=== PATIENT | female | born 1935 | race Caucasian/White ===

== ENCOUNTER 2016-06-05 21:24 | Emergency (ER) | payer MEDICARE ==
[2016-06-05] MEDS ORDERED: Heparin 5,000 UNITS/ML VIAL ONE (21:45)
[2016-06-05] MEDS ORDERED: Heparin 20,000 units/D5W 500 ML ONE (21:54)
[2016-06-05 21:56] LABS: #Basophils 0.1 thou/uL (0.0-0.2); #Eosinphils 0.2 thou/uL (0.0-0.7); #Lymphocytes 3.3 thou/uL (1.20-3.40); #Monocytes 1.3 thou/uL (0.11-0.59); %Basophils 1.2 % (0.0-1.0); %Eosinophils 1.5 % (0.0-10.0); %Lymphocytes 29.9 % (21.0-51.0); %Neutrophils 55.3 % (42.0-75.0); Hemoglobin 13.9 g/dL (12.0-16.0); Mean Corpuscular Hemoglobin 30.7 pg (27.0-31.0); Mean Corpuscular Volume 90.4 fl (81.0-99.0); Mean Platelet Volume 5.9 fL (7.4-10.4); Platelet Count 376 thou/uL (130-400); RBC Distribution Width 12.4 % (11.5-14.5); Red Blood Cell (RBC) Count 4.52 mill/uL (4.20-5.40); White Blood Cell (WBC) Count 10.9 thou/uL (4.8-10.8)
[2016-06-05 22:03] LABS: PTT 27.6 SEC (22.9-36.1); Prothrombin Time 12.9 SEC (12.0-14.7)
[2016-06-05 22:10] LABS: ALT (SGPT) 12 U/L (0-55); AST (SGOT) 17 U/L (5-34); Alkaline Phosphatase 49 U/L (40-150); Anion Gap 16 mmol/L (10-20); BUN (Urea Nitrogen) 13 mg/dL (9.8-20.1); Bilirubin, Total 0.2 mg/dL (0.2-1.2); Calc. Creatinine Clearance 0 mL/min (70-130); Calcium 9.8 mg/dL (7.8-10.44); Carbon Dioxide 26 mmol/L (23-31); Chloride 94 mmol/L (98-107); Estimated GFR-MDRD 75; Globulin 3.4 g/dL (2.4-3.5); Glucose 108 mg/dL (83-110); Potassium 4.1 mmol/L (3.5-5.1); Protein, Total 7.4 g/dL (5.8-8.1); Sodium 132 mmol/L (136-145)
[2016-06-05] MEDS ORDERED: Clopidogrel Bisulfate 75 MG TAB ONE (22:10)
[2016-06-05 22:11] LABS: CKMB 0.8 ng/mL (0-6.6); Troponin I 0.014 ng/mL (< 0.028)
== END 2016-06-05 22:15 | disposition short-term general hospital (02) ==
LOC: NAV ERS 21:24
DX: I21.19 ST elevation (STEMI) myocardial infarction involving other coronary artery of inferior wall (principal); F17.210 Nicotine dependence, cigarettes, uncomplicated; F41.9 Anxiety disorder, unspecified; F32.9 Major depressive disorder, single episode, unspecified; Z79.82 Long term (current) use of aspirin; Z79.899 Other long term (current) drug therapy
CPT/HCPCS: 80053; 82553; 84484; 85025; 85610; 85730; 93005; 96374; 96375; J1644

== ENCOUNTER 2016-09-12 12:35 | Outpatient (CLI) | payer MEDICARE ==
[2016-09-12 21:54] LABS: Bilirubin Negative (Negative); Blood, Urine Large (Negative); Glucose, Urine (Dipstick) Negative (Negative); Leukocyte Large (Negative); Nitrite Negative (Negative); Protein, Urine (Dipstick) Negative (Neg-Trace); Urobilinogen 0.2 mg/dL (0.2-1.0)
[2016-09-12 22:15] LABS: Clarity SL HAZY (Clear)
[2016-09-12 22:21] LABS: Bacteria/HPF 1+ HPF (None Seen); Squamous Epithelial 0-3 HPF (0-3)
== END 2016-09-12 12:36 | disposition home or self-care (01) ==
LOC: NAV LABSP 12:35
PROVIDERS: ATTEND Internal Medicine
DX: N39.0 Urinary tract infection, site not specified (principal)
CPT/HCPCS: 81001; 87086

== ENCOUNTER 2016-11-21 10:35 | Outpatient (CLI) | payer MEDICARE ==
[2016-11-21 11:07] LABS: Prothrombin Time 40.6 SEC (12.0-14.7)
== END 2016-11-21 10:36 | disposition home or self-care (01) ==
LOC: NAVSJIPCSP 10:35 → NAV LAB 10:36
PROVIDERS: ATTEND Internal Medicine
DX: G45.9 Transient cerebral ischemic attack, unspecified (principal)
CPT/HCPCS: 36415; 85610

== ENCOUNTER 2016-11-24 10:21 | Outpatient (CLI) | payer MEDICARE ==
[2016-11-24 11:40] LABS: INR-International Normal Ratio 2.9; Prothrombin Time 31.9 SEC (12.0-14.7)
== END 2016-11-24 10:22 | disposition home or self-care (01) ==
LOC: NAVSJIPCSP 10:21 → NAV LAB 10:22
PROVIDERS: ATTEND Internal Medicine
DX: Z51.81 Encounter for therapeutic drug level monitoring (principal); G45.9 Transient cerebral ischemic attack, unspecified; Z79.01 Long term (current) use of anticoagulants
CPT/HCPCS: 85610

== ENCOUNTER 2016-11-29 09:42 | Outpatient (CLI) | payer MEDICARE ==
[2016-11-29 13:45] LABS: Bilirubin Negative (Negative); Blood, Urine Trace (Negative); Clarity Slightly Cloudy (Clear); Glucose, Urine (Dipstick) 100 mg/dL (Negative); Leukocyte Small (Negative); Nitrite Positive (Negative); Protein, Urine (Dipstick) Negative (Neg-Trace); Specific Gravity, Urine 1.015 (1.005-1.030)
[2016-11-29 13:58] LABS: Bacteria/HPF 2+ HPF (None Seen); Squamous Epithelial 0-3 HPF (0-3)
== END 2016-11-29 09:43 | disposition home or self-care (01) ==
LOC: NAVSJIPCSP 09:42
PROVIDERS: ATTEND Internal Medicine
DX: N39.0 Urinary tract infection, site not specified (principal)
CPT/HCPCS: 81003; 81015; 87077; 87086; 87186

== ENCOUNTER 2016-12-03 12:32 | Outpatient (CLI) | payer MEDICARE ==
[2016-12-03 14:07] LABS: INR-International Normal Ratio 2.3; Prothrombin Time 25.8 SEC (12.0-14.7)
== END 2016-12-03 12:33 | disposition home or self-care (01) ==
LOC: NAV LAB 12:32
PROVIDERS: ATTEND Internal Medicine
DX: Z51.81 Encounter for therapeutic drug level monitoring (principal); G45.9 Transient cerebral ischemic attack, unspecified; Z79.01 Long term (current) use of anticoagulants
CPT/HCPCS: 36415; 85610

== ENCOUNTER 2016-12-18 11:17 | Outpatient (CLI) | payer MEDICARE ==
[2016-12-18 13:14] LABS: ALT (SGPT) 23 U/L (8-55); AST (SGOT) 22 U/L (5-34); Albumin 4.2 g/dL (3.4-4.8); Alkaline Phosphatase 70 U/L (40-150); Anion Gap 16 mmol/L (10-20); BUN (Urea Nitrogen) 8 mg/dL (9.8-20.1); Bilirubin, Total 0.5 mg/dL (0.2-1.2); Calc. Creatinine Clearance 0 mL/min (70-130); Calcium 9.4 mg/dL (7.8-10.44); Carbon Dioxide 27 mmol/L (23-31); Chloride 95 mmol/L (98-107); Estimated GFR-MDRD 82; Globulin 2.5 g/dL (2.4-3.5); Glucose 90 mg/dL (83-110); Potassium 4.6 mmol/L (3.5-5.1); Protein, Total 6.7 g/dL (6.0-8.3); Sodium 133 mmol/L (136-145)
[2016-12-18 13:35] LABS: INR-International Normal Ratio 1.7; Prothrombin Time 20.5 SEC (12.0-14.7)
[2016-12-18 13:36] LABS: #Basophils 0.1 thou/uL (0.0-0.2); #Eosinphils 0.1 thou/uL (0.0-0.7); #Monocytes 1.1 thou/uL (0.11-0.59); #Neutrophils 5.3 thou/uL (1.40-6.50); %Basophils 1.1 % (0.0-1.0); %Eosinophils 1.5 % (0.0-10.0); %Lymphocytes 23.3 % (21.0-51.0); %Monocytes 12.3 % (0.0-10.0); %Neutrophils 61.8 % (42.0-75.0); Hemoglobin 11.8 g/dL (12.0-16.0); Mean Corpuscular HGB CONC 32.5 g/dL (32.0-36.0); Mean Corpuscular Hemoglobin 29.9 pg (27.0-31.0); Mean Platelet Volume 5.2 fL (7.4-10.4); Platelet Count 379 thou/uL (130-400); RBC Distribution Width 12.3 % (11.5-14.5); Red Blood Cell (RBC) Count 3.95 mill/uL (4.20-5.40); White Blood Cell (WBC) Count 8.6 thou/uL (4.8-10.8)
== END 2016-12-18 11:18 | disposition home or self-care (01) ==
LOC: NAVSJIPCSP 11:17
PROVIDERS: ATTEND Internal Medicine
DX: D64.9 Anemia, unspecified (principal); I48.0 Paroxysmal atrial fibrillation; G45.9 Transient cerebral ischemic attack, unspecified; Z98.62 Peripheral vascular angioplasty status
CPT/HCPCS: 36415; 80053; 85025; 85610

== ENCOUNTER 2016-12-20 12:16 | Outpatient (CLI) | payer MEDICARE ==
[~2016-12-20 12:16] MED LIST: Iopamidol 370 76% 100 ML VIAL ONE
--- NOTE | 2016-12-20 14:55 | CT ---
CT ANGIO OF THE ABDOMEN AND PELVIS AND LOWER EXTERMIITES PERFORMED WITH INTRAVENOUS CONTRAST ENHANCE MENT WITH 3D RECONSTRUCTIONS: HISTORY: Right leg pain. COMPARISON: 10/07/2014 FINDINGS: The lung bases show chronic appearing change. The upper portion of the liver is not included on thi s exam. The liver and spleen, as well as the pancreas regions appear unremarkable. The gallbladder is also normal in size and appearance. The right and left adrenal glands and the right and left ki dneys are normal. No significant periaortic or mesenteric adenopathy. There is a marked scoliotic deformity to the spine, convexed to the left. The angiographic portion of the study yielded a technically good examination. There is pronounced a therosclerotic change of the infrarenal abdominal aorta, particularly at the bifurcation. No aneury sm. There is a single left renal artery and two right renal arteries present. There is some mild n arrowing at the origin of both the celiac as well as the superior mesenteric arteries. On the right side, there is atherosclerotic change without significant narrowing of the right common iliac artery. There is dense atherosclerotic change of the proximal internal iliac artery and some areas of mild narrowing through the external iliac artery without significant stenosis. There is a fem/fem bypass noted. The common femoral, superficial femoral, and profunda femoral arteries are a ll patent with atherosclerotic change of the distal superficial femoral artery and some mild narrowi ng at the level of the adductor canal. The popliteal artery is patent without significant stenosis. There is a patent trifurcation and three-vessel runoff present. 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 Flow is seen wi thin the small external iliac with fairly significant stenosis along the course of the left external iliac artery. The fem/fem bypass is patent, and the common femoral artery, as well as the superfic ial and profunda femoral arteries, show no areas of significant narrowing. There is some moderate p laque formation of the superficial femoral artery, distally. The popliteal artery is also patent, a nd three-vessel runoff to the foot is noted. IMPRESSION: 1. The right lower extremity shows three-vessel runoff to the foot without evidence of any areas of significant stenosis. 2. The left lower extremity runoff shows occlusion of the left common iliac artery at its origin an d a markedly narrowed left external iliac artery. There is a fem/fem bypass. The bypass is patent, and the left leg shows three-vessel runoff to the foot. POS: [facility]
== END 2016-12-20 12:17 | disposition home or self-care (01) ==
LOC: NAV CT 12:16
PROVIDERS: ATTEND Internal Medicine
DX: M79.606 Pain in leg, unspecified (principal); I77.1 Stricture of artery; Z98.62 Peripheral vascular angioplasty status
CPT/HCPCS: 75635

== ENCOUNTER 2017-03-11 09:58 | Outpatient (CLI) | payer MEDICARE ==
--- NOTE | 2017-03-11 16:00 | ULT ---
EXAM: BLADDER ULTRASOUND: HISTORY: Bladder spasm. COMPARISON: None. TECHNIQUE: Transverse and sagittal imaging of the urinary bladder was performed, pre- and post-voiding. FINDINGS: Suboptimal evaluation of the bladder mucosal due to inadequate distention on the prevoid images. Prevoid volume is 8 mL. Postvoid volume is 3 mm. IMPRESSION: Limited evaluation of the bladder. POS: [facility]
== END 2017-03-11 09:59 | disposition home or self-care (01) ==
LOC: NAV ULT 09:58
PROVIDERS: ATTEND Internal Medicine
DX: R39.89 Other symptoms and signs involving the genitourinary system (principal); Z51.81 Encounter for therapeutic drug level monitoring; G45.9 Transient cerebral ischemic attack, unspecified; Z79.01 Long term (current) use of anticoagulants
CPT/HCPCS: 76856

== ENCOUNTER 2017-04-11 15:49 | Outpatient (CLI) | payer MEDICARE ==
--- NOTE | 2017-04-11 16:44 | RAD ---
RIBS LEFT GREATER THAN EQUAL TWO VIEW WITH PA CHEST X-RAY 04/11/17 HISTORY: Left sided rib pain after coughing. COMPARISON: None. FINDINGS: The lungs are clear. No pneumothorax or effusion. Numerous calcified granulomas. There is cement in t he thoracolumbar junction compression fractures. IMPRESSION: Mild dextroscoliosis. There is a midline thoracic compression fracture. IMPRESSION: 1. No displaced left sided rib fracture. No pneumothorax. 2. Multiple thoracic spine compression fractures as well as thoracolumbar junction compression f ractures which contains cement. Compression fracture of T7 does not contain cement. 3. Multiple calcified granulomas. POS: [facility]
== END 2017-04-11 15:50 | disposition home or self-care (01) ==
LOC: NAV RAD 15:49
PROVIDERS: ATTEND Internal Medicine
DX: R07.81 Pleurodynia (principal); M86.8X8 Other osteomyelitis, other site; S22.069A Unspecified fracture of T7-T8 vertebra, initial encounter for closed fracture

== ENCOUNTER 2017-05-13 00:46 | Emergency (ER) | payer MEDICARE ==
[2017-05-13] MEDS ORDERED: Ondansetron HCl/PF 4 MG/2 ML Vial ONE (01:12)
[2017-05-13 01:17] LABS: #Basophils 0.1 thou/uL (0.0-0.2); #Eosinphils 0.1 thou/uL (0.0-0.7); #Lymphocytes 1.8 thou/uL (1.20-3.40); #Neutrophils 13.1 thou/uL (1.40-6.50); %Basophils 0.5 % (0.0-1.0); %Eosinophils 0.8 % (0.0-10.0); %Lymphocytes 11.2 % (21.0-51.0); %Monocytes 6.2 % (0.0-10.0); %Neutrophils 81.3 % (42.0-75.0); Hemoglobin 12.1 g/dL (12.0-16.0); Mean Corpuscular HGB CONC 33.3 g/dL (32.0-36.0); Mean Corpuscular Hemoglobin 29.7 pg (27.0-31.0); Mean Corpuscular Volume 89.1 fl (81.0-99.0); Mean Platelet Volume 7.3 fL (7.4-10.4); Platelet Count 299 thou/uL (130-400); Red Blood Cell (RBC) Count 4.08 mill/uL (4.20-5.40); White Blood Cell (WBC) Count 16.1 thou/uL (4.8-10.8)
[2017-05-13] MEDS ORDERED: Sodium Chloride 0.9% 1,000 ML ONE (01:20)
[2017-05-13 01:26] LABS: INR-International Normal Ratio 0.9; PTT 25.6 SEC (22.9-36.1); Prothrombin Time 12.7 SEC (12.0-14.7)
[2017-05-13 01:34] LABS: ALT (SGPT) 36 U/L (8-55); AST (SGOT) 28 U/L (5-34); Albumin 3.9 g/dL (3.4-4.8); Alkaline Phosphatase 64 U/L (40-150); Anion Gap 14 mmol/L (10-20); BUN (Urea Nitrogen) 11 mg/dL (9.8-20.1); Bilirubin, Total 0.3 mg/dL (0.2-1.2); Calc. Creatinine Clearance 0 mL/min (70-130); Calcium 9.3 mg/dL (7.8-10.44); Carbon Dioxide 29 mmol/L (23-31); Chloride 97 mmol/L (98-107); Estimated GFR-MDRD 77; Glucose 106 mg/dL (83-110); Protein, Total 6.9 g/dL (6.0-8.3); Sodium 136 mmol/L (136-145)
[2017-05-13 03:46] LABS: Bilirubin Negative (Negative); Blood, Urine Negative (Negative); Clarity Clear (Clear); Glucose, Urine (Dipstick) Negative (Negative); Leukocyte Negative (Negative); Nitrite Negative (Negative); Protein, Urine (Dipstick) Negative (Neg-Trace); pH, Urine 6.5 (5.0-9.0)
--- NOTE | 2017-05-13 08:27 | RAD ---
PORTABLE CHEST 1 VIEW: Date: 05/13/17 Time: 0158 hours HISTORY: Trauma. Fall. Chest pain. FINDINGS/IMPRESSION: The heart size is normal. The lungs are expanded with evidence of old granulomatous disease. No lobar consolidation, pneumothoraces, or pleural effusions are identified. POS: [facility]
--- NOTE | 2017-05-13 08:54 | RAD ---
RIGHT HIP 2 VIEWS: HISTORY: An 82-year-old female with right hip pain following a mechanical fall. FINDINGS/ IMPRESSION: Right hip joint arthrosis. Bone demineralization. No evidence for acute right hip fracture. POS: [facility]
--- NOTE | 2017-05-13 08:58 | RAD ---
TWO VIEWS OF THE LEFT HIP: INDICATION: History of mechanical fall with left hip pain. FINDINGS: There is a nondisplaced left inferior pubic ramus fracture. No acute fracture is seen involving the proximal femur. There is mild degenerative arthrosis of the left hip. There are surgical clips seen within the left inguinal region corresponding to a fem-fem bypass graft. IMPRESSION: 1. No acute fracture or subluxation involving the left proximal femur and left hip. 2. There is a nondisplaced fracture involving the left inferior pubic ramus. Overlying bowel gas li mits visualization of the left pubic body and the superior pubic ramus. POS: [facility]
--- NOTE | 2017-05-13 08:58 | RAD ---
AP PELVIS: Please see CT pelvis report. POS: [facility]
--- NOTE | 2017-05-13 09:22 | CT ---
PRELIMINARY REPORT/[facility]/EMERGENCY AFTER HOURS PROCEDURE: EXAM: CT Thoracic Spine Without Intravenous Contrast CLINICAL HISTORY: 82 years old, female; Pain; Pain in thoracic spine; Patient HX: Fell @ 2100 last night TECHNIQUE: Axial computed tomography images of the thoracic spine without intravenous contrast. All CT scans at this facility use one or more dose reduction techniques, viz.: automated exposure control; ma/kV adjustment per patient size (including targeted exams where dose is matched to indication; i.e. head) ; or iterative reconstruction technique. Coronal and sagittal reformatted images were created and reviewed. COMPARISON: No relevant prior studies available. FINDINGS: Please note, the thoracic spine is visualized from the T3 level through the L1 level. Vertebrae: There is a T7 compression fracture with increased sclerosis, suggesting chronicity. Vertebroplasty changes are seen at T12 and L1. Discs/spinal canal/neural foramina: No acute findings. Soft tissues: Unremarkable. Vasculature: Atherosclerotic vascular calcification. Lymph nodes: Mediastinal and hilar calcified lymph nodes. Lungs: Centrilobular emphysematous changes. IMPRESSION: Chronic appearing T7 compression fracture. Thank you for allowing us to participate in the care of your patient. Dictated and Authenticated by: Jaelyn Galvan MD 05/13/2017 3:25 AM Central Time ([place] & [place]) FINAL REPORT CT THORACIC SPINE WITHOUT CONTRAST: HISTORY: The patient fell last night. Posttraumatic pain. COMPARISON: None. CORRELATION: Thoracic spine MRI 04/16/17. TECHNIQUE: Noncontrast thoracic spine CT is performed in the axial plane. Reformatted images are submitted for interpretation. FINDINGS: This report is in agreement with the preliminary report by [facility]. Chronic fracture involving the T7 ve rtebral body. There is previous vertebroplasty change in the upper lumbar spine. There is diffuse b one demineralization. Acute fractures of the thoracic spine are not appreciated. No high-grade cent ral canal stenosis. Calcified lymph nodes in the mediastinum and janie are identified. POS: [facility]
--- NOTE | 2017-05-13 09:24 | CT ---
PRELIMINARY REPORT/[facility]/EMERGENCY AFTER HOURS PROCEDURE: EXAM: CT Lumbar Spine Without Intravenous Contrast CLINICAL HISTORY: 82 years old, female; Pain; Low back pain; Patient HX: Fell @ 2100 last night TECHNIQUE: Axial computed tomography images of the lumbar spine without intravenous contrast. Coronal and sagittal reformatted images were created and reviewed. COMPARISON: No relevant prior studies available. FINDINGS: Vertebrae: Vertebroplasty changes are seen at T12 and L1. Spinal curvature is noted. There is leftwar d listhesis of L4 upon L5. Multilevel endplate osteophytosis and mild disc space loss are present. No acute fracture. Discs/spinal canal/neural foramina: See above. Soft tissues: Unremarkable. Vasculature: Atherosclerotic vascular calcification. Lungs: Calcified right lower lobe granuloma. Liver: The liver is high density. Stomach and bowel: Stool throughout the colon. IMPRESSION: 1. No acute lumbar spine fracture or dislocation. 2. Multilevel degenerative disc disease. Thank you for allowing us to participate in the care of your patient. Dictated and Authenticated by: Jaelyn Galvan MD 05/13/2017 3:24 AM Central Time ([place] & [place]) FINAL REPORT CT LUMBAR SPINE WITHOUT CONTRAST: HISTORY: Fall. Pain. COMPARISON: 01/01/17. TECHNIQUE: CT lumbar spine is performed in the axial plane. Reformatted images are submitted for interpretation . FINDINGS: This report is in agreement with the preliminary report by [facility]. No acute lumbar spine fracture. The re is prevertebroplasty change at the T12 and L1 level. There is stable degenerative change. Hyperd ensity of the liver is noted. There is an incompletely evaluated anterior right pelvic fracture. The fracture appears to be adjace nt to the anterior margin of the right acetabulum. Please refer to pelvic CT report for further deta ils. POS: [facility]
--- NOTE | 2017-05-13 09:34 | CT ---
PRELIMINARY REPORT/[facility]/EMERGENCY AFTER HOURS PROCEDURE: EXAM: CT Pelvis Without Intravenous Contrast CLINICAL HISTORY: 82 years old, female; Pain; Hip pain; Bilateral; Patient HX: Fell @2100 last night TECHNIQUE: Axial computed tomography images of the pelvis without intravenous contrast. All CT scans at this [facility] use one or more dose reduction techniques, viz.: automated exposure control; ma/kV adjustment p er patient size (including targeted exams where dose is matched to indication; i.e. head); or iterati ve reconstruction technique. COMPARISON: No relevant prior studies available. FINDINGS: Bones/joints: There is a nondisplaced left inferior pubic ramus fracture. There is a nondisplaced fra cture of the left parasymphyseal superior pubic ramus. Degenerative changes in the visualized spine. No dislocation. Soft tissues: Unremarkable. Vasculature: Atherosclerotic vascular opacification. Femoral-femoral bypass changes are noted. Bladder: Unremarkable. No stones. IMPRESSION: Nondisplaced fractures of the left inferior pubic ramus and parasymphyseal left superior pubic ramus. Thank you for allowing us to participate in the care of your patient. Dictated and Authenticated by: Jaelyn Galvan MD 05/13/2017 3:17 AM Central Time ([place] & [place]) FINAL REPORT CT PELVIS WITHOUT IV CONTRAST: Date: 05/13/17 FINDINGS/IMPRESSION: I disagree with the preliminary report given by Dr. Deepika Galvan of [facility]. There are nondisplaced frac tures of the anterior aspect of the right sacrum extending into the neural foramen and a nondisplaced fracture of the right pubic groove extending into anterior column of the right acetabulum. These fin dings were not mentioned on the preliminary report by Dr. Deepika Glavan. She did, however, mention the nondisplaced fractures of the left inferior pubic ramus and parasymphyseal left superior pubic ramus . There is sigmoid diverticulosis. Report called over the telephone to the ER physician Dr. Kerr at [facility] at 0 [phone] hours. CODE QD POS: [facility]
== END 2017-05-13 04:30 | disposition short-term general hospital (02) ==
LOC: NAV ERS 00:46
DX: S32.512A Fracture of superior rim of left pubis, initial encounter for closed fracture (principal); I25.2 Old myocardial infarction; F41.9 Anxiety disorder, unspecified; Z87.891 Personal history of nicotine dependence; Z79.899 Other long term (current) drug therapy; Z79.82 Long term (current) use of aspirin; W17.89XA Other fall from one level to another, initial encounter; Y93.02 Activity, running
CPT/HCPCS: 36415; 71045; 72128; 72131; 72170; 72192; 80053; 81003; 85025; 85610; 85730; 94760; J2270; J2405; J7050

== ENCOUNTER 2017-05-13 11:55 | Inpatient (IN) | payer MEDICARE ==
[2017-05-13] MEDS: traMADol HCl 50 MG TAB PO PRN ×2 (15:18→20:49)
[2017-05-13] MEDS: Docusate 100 MG CAP PO SCH (20:49)
[2017-05-13] MEDS: Zolpidem Tartrate 5 MG TAB PO PRN (20:49)
[2017-05-14] MEDS: traMADol HCl 50 MG TAB PO PRN ×5 (00:43→17:02)
[2017-05-14 05:12] LABS: #Basophils 0.1 thou/uL (0.0-0.2); #Eosinphils 0.3 thou/uL (0.0-0.7); #Lymphocytes 1.2 thou/uL (1.20-3.40); #Monocytes 1.2 thou/uL (0.11-0.59); #Neutrophils 9.2 thou/uL (1.40-6.50); %Basophils 0.6 % (0.0-1.0); %Eosinophils 2.3 % (0.0-10.0); %Lymphocytes 10.4 % (21.0-51.0); %Monocytes 9.8 % (0.0-10.0); %Neutrophils 76.9 % (42.0-75.0); Hemoglobin 9.6 g/dL (12.0-16.0); Mean Corpuscular HGB CONC 32.3 g/dL (32.0-36.0); Mean Corpuscular Hemoglobin 29.5 pg (27.0-31.0); Mean Corpuscular Volume 91.3 fl (81.0-99.0); Mean Platelet Volume 7.1 fL (7.4-10.4); Platelet Count 216 thou/uL (130-400); RBC Distribution Width 13.3 % (11.5-14.5); Red Blood Cell (RBC) Count 3.25 mill/uL (4.20-5.40)
[2017-05-14 05:29] LABS: Anion Gap 10 mmol/L (10-20); BUN (Urea Nitrogen) 13 mg/dL (9.8-20.1); Calc. Creatinine Clearance 54 mL/min (70-130); Calcium 8.3 mg/dL (7.8-10.44); Carbon Dioxide 27 mmol/L (23-31); Chloride 102 mmol/L (98-107); Estimated GFR-MDRD Greater than 90; Glucose 96 mg/dL (83-110); Sodium 135 mmol/L (136-145)
[2017-05-14] MEDS ORDERED: Sodium Chloride 0.9% 1,000 ML IV SCH (07:00)
--- NOTE | 2017-05-14 07:56 | HP ---
CHIEF COMPLAINT: Pelvic fracture. 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 She has most recently been started on amiodarone and at this time appears to have not had any problems with shortness of breath or chest p ain. She admitted; however, this time after a fall when tripped over her walker and sat hard on the floor with initial moderate pain, but then increased when she moved in the bed. She therefore called the ambulance, was brought into [facility] where they initially felt she only had a pubic ramus frac ture on the CT scan and she was therefore admitted to [place] for pain relief and physical therapy. H constanza, after admission, it was found that she on re-read also had an extension of the fracture into her acetabulum, but with no widening of the symphysis. She has no complaints of dizziness, chest mehreen n, headache, palpitations. She does complain of some dry mouth and had a minimal amount of urine out put over the night. She does state that she has had periodic episodes of low blood pressure in the 9 0s, but does not take any antihypertensives. MEDICATIONS: Her medications at this time at home included the amiodarone 400 mg daily, aspirin 81 d aily, citalopram 10 daily, alprazolam 0.25 twice daily. PAST MEDICAL HISTORY: Otherwise, unremarkable. SOCIAL HISTORY: She is a , lives alone, does not smoke any further, but still drinks 2-3 drinks of alcohol daily. 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 She has no change in her vision or hearing, no hoarseness, sore throat. Does have some dry mouth over t he last day, PULMONARY: She denies cough, sputum production, pneumonia, asthma, tuberculosis. CARDIOVASCULAR: She denies chest pain, palpitations, dizziness, lightheadedness. GASTROINTESTINAL: She denies nausea, vomiting, diarrhea, constipation. GENITOURINARY: Denies dysuria, hematuria, nocturia. MUSCULOSKELETAL: She has chronic pain in her back from degenerative disk disease. She is taking no medications at this time. NEUROLOGIC: She denies localized numbness, weakness in arms or extremities. PHYSICAL EXAMINATION: GENERAL: The patient is an elderly white female lying in bed, awake and alert, appears to be in no a cute distress at rest. VITAL SIGNS: Blood pressure on admission was 96/52, temperature is 99, pulse 73, respirations 20, O2 sats 96%. However, she had received morphine in the Emergency Room, at this time now her blood pres sure is up to 113/55, temperature is 98, pulse 72, respirations 18, O2 sats 96%. HEENT: Pupils are equal, round, and react to light and accommodation. Sclerae are anicteric, Conjun ctivae pale. Oral mucous membranes well hydrated. NECK: Supple, no nodes or masses. JVP is not elevated. LUNGS: Clear. CARDIAC: Regular rhythm. No gallops or murmurs. ABDOMEN: Soft, nontender with no masses or organomegaly. SKIN/EXTREMITIES: Show tenderness in the left inguinal area and on movement of the left hip with no obvious hematoma or ecchymosis. Pedal pulses are 1+ and equal. NEUROLOGICAL: Intact. LABORATORY: Initial white count 12,000. Initial white count was 16,000, now it is 12,000. Initial hemoglobin was 12.1, now is 9.6, platelet count was 299, now 216. Sodium is 135, potassium 3.5, chlo ride 4.0, chloride 102, potassium 4.0, bicarbonate 27, creatinine 0.61, BUN 13. Urinalysis only show ed 7-10 white cells, 4-6 red cells, no bacteria. CT as above, does show a left pubic inferior and superior ramus fracture, but also extension into the acetabulum and also a right sacral anterior aspect fracture, nondisplaced. ASSESSMENT: 1. Pelvic fractures, multiple initially felt to be stable. Final reread showing possible extension into the acetabulum and now has developed significant decrease in hemoglobin, possibly due to pelvic hematoma. She has been placed in a pelvic binder and is fairly comfortable at this time. Her blood pressure initially was low after being given morphine in the [facility] ER, but now it is back to [facility] and she has tolerable pain on no medications other than tramadol at this time. 2. Atrial fibrillation appears to be converted to sinus rhythm on amiodarone and will continue this. She has been on full dose aspirin, but this will be discontinued. 3. Her osteoporosis appears to be stable with no other fractures. 4. Degenerative disk disease is stable also. PLAN: Discontinue aspirin, repeat H&H in 4 hours. Give 1 liter of saline, type and screen 2 units o f packed cells. Discussed with the Trauma Team after repeat laboratory. Hold morphine at this time because of possibility of recurrent hypotension. Prognosis is somewhat guarded because of decreased hemoglobin and blood pressure and I have discussed code status with the patient and she is not to be resuscitated.
[2017-05-14] MEDS: Famotidine 20 MG TAB PO SCH (07:57)
[2017-05-14] MEDS: Amiodarone 200 MG TAB PO SCH (07:58)
[2017-05-14] MEDS: Docusate 100 MG CAP PO SCH ×2 (07:58→20:37)
[2017-05-14] MEDS: Citalopram 10 MG TAB PO SCH (07:58)
[2017-05-14 09:47] LABS: Hemoglobin 9.3 g/dL (12.0-16.0); Platelet Count 210 thou/uL (130-400)
[2017-05-14] MEDS: Aspirin 325 MG TAB PO SCH (10:49)
[2017-05-14] MEDS ORDERED: Sodium Chloride 0.9% 10 ML ONE (11:55)
[2017-05-14 14:27] VITALS: BMI 18.8
[2017-05-14] MEDS: ALPRAZolam 0.25 MG TAB PO PRN (16:20)
[2017-05-14] MEDS: Baclofen 10 MG TAB PO PRN (16:20)
[2017-05-14] MEDS: Latanoprost 0.005% Ophth Soln 2.5 ml Bottle EA EYE SCH (20:36)
[2017-05-14] MEDS: Zolpidem Tartrate 5 MG TAB PO PRN (20:37)
[2017-05-15] MEDS: traMADol HCl 50 MG TAB PO PRN ×4 (02:25→19:32)
--- NOTE | 2017-05-15 07:50 | PRG ---
DATE OF SERVICE: 05/15/2017 SUBJECTIVE: The patient feels nauseated this morning. Did not sleep well through the night, is havi ng tolerable, but persistent pain, no dizziness or lightheadedness, did eat fairly well. OBJECTIVE: Shows blood pressure is down again this morning to 97/54, after being given morphine, tem perature is 97.6, pulse 62, respirations 18, O2 sat is 95% on 2 liter cannula. Lungs show a few expi ratory wheezes. Cardiac examination shows irregular rhythm. Abdomen is soft and nontender. LABORATORY DATA: Laboratory shows hemoglobin is fairly stable yesterday at 9.3 down from 9.6 previou s day. Skin and extremities show no significant ecchymoses or bruising of the left iliac or pubic re gion. ASSESSMENT: 1. Resolving pubic and acetabular fracture on the left side, persistent pain, but with stabilized bl eeding. 2. Atrial fibrillation, rate controlled. No anticoagulation secondary to recent pelvic fracture. 3. Recurrent nausea, most likely due to medication. 4. Possible fluid overload with some wheezing this morning after fluid bolus yesterday. PLAN: Chest x-ray today, repeat CBC today, continue morphine and Zofran as needed. Obtain urinalysi s and urine culture today, as the patient states she is having some dysuria.
[2017-05-15] MEDS: Aspirin 325 MG TAB PO SCH (08:45)
[2017-05-15] MEDS: Famotidine 20 MG TAB PO SCH (08:45)
[2017-05-15] MEDS: Citalopram 10 MG TAB PO SCH (08:45)
[2017-05-15] MEDS: Docusate 100 MG CAP PO SCH ×2 (08:45→19:32)
[2017-05-15] MEDS: Amiodarone 200 MG TAB PO SCH (08:45)
[2017-05-15] MEDS: Baclofen 10 MG TAB PO PRN (08:46)
[2017-05-15] MEDS: ALPRAZolam 0.25 MG TAB PO PRN ×2 (08:54→20:38)
[2017-05-15 10:37] LABS: Bilirubin Negative (Negative); Blood, Urine Large (Negative); Clarity Cloudy (Clear); Glucose, Urine (Dipstick) Negative (Negative); Leukocyte Small (Negative); Nitrite Positive (Negative); Protein, Urine (Dipstick) 100 mg/dL (Neg-Trace); Urobilinogen 0.2 mg/dL (0.2-1.0); pH, Urine 5.5 (5.0-9.0)
[2017-05-15 11:04] LABS: Bacteria/HPF 4+ HPF (None Seen); Squamous Epithelial 0-3 HPF (0-3)
[2017-05-15 11:05] LABS: Other Microscopic Description NO
[2017-05-15 12:29] LABS: #Basophils 0.1 thou/uL (0.0-0.2); #Eosinphils 0.2 thou/uL (0.0-0.7); #Lymphocytes 0.8 thou/uL (1.20-3.40); #Monocytes 1.2 thou/uL (0.11-0.59); %Basophils 0.4 % (0.0-1.0); %Eosinophils 1.1 % (0.0-10.0); %Lymphocytes 6.2 % (21.0-51.0); %Monocytes 9.2 % (0.0-10.0); Hemoglobin 9.5 g/dL (12.0-16.0); Mean Corpuscular HGB CONC 32.5 g/dL (32.0-36.0); Mean Corpuscular Hemoglobin 29.3 pg (27.0-31.0); Mean Corpuscular Volume 90.1 fl (81.0-99.0); Mean Platelet Volume 6.9 fL (7.4-10.4); Platelet Count 221 thou/uL (130-400); RBC Distribution Width 13.1 % (11.5-14.5); Red Blood Cell (RBC) Count 3.25 mill/uL (4.20-5.40); White Blood Cell (WBC) Count 13.2 thou/uL (4.8-10.8)
--- NOTE | 2017-05-15 17:16 | RAD ---
FRONTAL VIEW CHEST 05/15/17 CLINICAL HISTORY: Wheezing, shortness of breath. FINDINGS: Reference made to 05/13/17. Redemonstration of granulomatous calcification. There is patchy density of the left lung base. The le ft hemidiaphragm is incompletely imaged. No consolidation of the right lung is seen. The cardiac is a ccentuated by portable technique. Osseous structures reveal no acute findings. IMPRESSION: Patchy density at the left lung base. There is incomplete visualization left hemidiaphragm. This coul d be on the basis of pneumonia. Recommend followup with dedicated two view chest to more completely e valuate. POS: [facility]
[2017-05-15] MEDS: Sulfameth/Trimethoprim DS 800-160mg TAB PO SCH (19:33)
[2017-05-15] MEDS: Latanoprost 0.005% Ophth Soln 2.5 ml Bottle EA EYE SCH (19:35)
[2017-05-16] MEDS: traMADol HCl 50 MG TAB PO PRN ×3 (03:55→14:41)
[2017-05-16] MEDS: ALPRAZolam 0.25 MG TAB PO PRN (07:51)
[2017-05-16] MEDS: Baclofen 10 MG TAB PO PRN (07:51)
[2017-05-16] MEDS: Ondansetron ODT 4 MG TAB PO PRN (07:51)
[2017-05-16 07:57] LABS: #Basophils 0.1 thou/uL (0.0-0.2); #Eosinphils 0.3 thou/uL (0.0-0.7); #Lymphocytes 1.1 thou/uL (1.20-3.40); #Monocytes 1.3 thou/uL (0.11-0.59); #Neutrophils 9.3 thou/uL (1.40-6.50); %Basophils 0.5 % (0.0-1.0); %Eosinophils 2.2 % (0.0-10.0); %Lymphocytes 9.3 % (21.0-51.0); %Monocytes 11.1 % (0.0-10.0); Hemoglobin 9.9 g/dL (12.0-16.0); Mean Corpuscular HGB CONC 33.4 g/dL (32.0-36.0); Mean Corpuscular Hemoglobin 29.6 pg (27.0-31.0); Mean Corpuscular Volume 88.5 fl (81.0-99.0); Mean Platelet Volume 7.4 fL (7.4-10.4); Platelet Count 243 thou/uL (130-400); RBC Distribution Width 12.4 % (11.5-14.5); Red Blood Cell (RBC) Count 3.33 mill/uL (4.20-5.40); White Blood Cell (WBC) Count 12.1 thou/uL (4.8-10.8)
[2017-05-16] MEDS: Aspirin 325 MG TAB PO SCH (08:33)
[2017-05-16] MEDS: Docusate 100 MG CAP PO SCH ×2 (08:33→20:40)
[2017-05-16] MEDS: Famotidine 20 MG TAB PO SCH (08:33)
[2017-05-16] MEDS: Citalopram 10 MG TAB PO SCH (08:33)
[2017-05-16] MEDS: Sulfameth/Trimethoprim DS 800-160mg TAB PO SCH ×2 (08:33→20:40)
[2017-05-16] MEDS: Amiodarone 200 MG TAB PO SCH (08:33)
--- NOTE | 2017-05-16 19:00 | PRG ---
DATE OF SERVICE: 05/16/2017 SUBJECTIVE: The patient is lying in bed, states she is still not sleeping well at night and having n o pain in her hip except when she moves, but now is having more pain in her lower back, has had recur rent nausea with pain medication, but is attempting to eat, is denying any shortness breath or dizzin ess. OBJECTIVE: VITAL SIGNS: Temperature is 99, pulse 86, respirations 22, O2 sats 90% on 2 liters, blood pressure 1 40/69. LUNGS: Clear. CARDIAC: Irregular rhythm. LABORATORY DATA: White count stable at 12,100, hematocrit is stable at 29, hemoglobin 9.9. Urinalys is did show greater than 50 white cells and has been started on treatment with antibiotics and urine culture predominantly showing E. coli, sensitivities pending. Left inguinal area is tender to palpat ion with no obvious bruising as his left buttock and spine. ASSESSMENT: 1. Left pubic ramus and acetabulum fracture, nonweightbearing with persistent pain controlled with m orphine, but with nausea and will add Zofran routinely. 2. Atrial fibrillation with rate controlled on amiodarone and appears to be back in sinus rhythm. W e will obtain repeat EKG. 3. Stable anemia with no evidence of recurrent pelvic hemorrhage. PLAN: 1. Continue PT, OT, nonweightbearing left leg, continue morphine and Zofran. Continue amiodarone. 2. Continue Bactrim-DS twice daily for urinary tract infection and check cultures. 3. Increase temazepam 30 mg at night for sleep.
[2017-05-16] MEDS: Latanoprost 0.005% Ophth Soln 2.5 ml Bottle EA EYE SCH (20:40)
[2017-05-17] MEDS: traMADol HCl 50 MG TAB PO PRN ×3 (05:53→20:24)
[2017-05-17] MEDS: Ondansetron ODT 4 MG TAB PO PRN ×2 (05:53→20:23)
[2017-05-17] MEDS: Amiodarone 200 MG TAB PO SCH (09:42)
[2017-05-17] MEDS: Docusate 100 MG CAP PO SCH ×2 (09:42→20:23)
[2017-05-17] MEDS: Sulfameth/Trimethoprim DS 800-160mg TAB PO SCH ×2 (09:42→20:22)
[2017-05-17] MEDS: Citalopram 10 MG TAB PO SCH (09:42)
[2017-05-17] MEDS: Aspirin 325 MG TAB PO SCH (09:42)
[2017-05-17] MEDS: Famotidine 20 MG TAB PO SCH (09:42)
--- NOTE | 2017-05-17 18:41 | PRG ---
DATE OF SERVICE: 05/17/2017 SUBJECTIVE: The patient feels slightly better with decreased pain. Still having some nausea and is somewhat upset with nurses, but appears to be improving and is eating better. OBJECTIVE: VITAL SIGNS: Blood pressure 150/68, pulse is 88, O2 sat 93% on 2-1/2 liters. LUNGS: Clear. CARDIAC: Showed regular rhythm. ABDOMEN: Soft and nontender. MUSCULOSKELETAL: Left hip does show some tenderness to palpation in the inguinal area and posterior hip. ASSESSMENT: 1. Stable pubic and left acetabular fracture with persistent insomnia and anxiety, stable chronic ob structive pulmonary disease, and nicotine and alcohol abuse. Escherichia coli, urinary tract infecti on, sensitive to Bactrim. 2. History of atrial fibrillation converted to sinus rhythm on amiodarone. PLAN: Increase alprazolam 0.5 p.o. q.i.d. p.r.n. Repeat chest x-ray because of persistent hypoxemia . Continue Bactrim DS twice daily for urinary tract infection. Continue pain relief for pubic and a cetabular fracture and continue PT and OT.
[2017-05-17] MEDS: ALPRAZolam 0.25 MG TAB PO PRN (20:23)
[2017-05-17] MEDS: Latanoprost 0.005% Ophth Soln 2.5 ml Bottle EA EYE SCH (20:24)
[2017-05-18] MEDS: Aspirin 325 MG TAB PO SCH (08:58)
[2017-05-18] MEDS: Sulfameth/Trimethoprim DS 800-160mg TAB PO SCH ×2 (08:58→20:42)
[2017-05-18] MEDS: Docusate 100 MG CAP PO SCH ×2 (08:59→20:42)
[2017-05-18] MEDS: traMADol HCl 50 MG TAB PO PRN (08:59)
[2017-05-18] MEDS: Amiodarone 200 MG TAB PO SCH (08:59)
[2017-05-18] MEDS: ALPRAZolam 0.25 MG TAB PO PRN ×2 (08:59→17:33)
[2017-05-18] MEDS: Citalopram 10 MG TAB PO SCH (08:59)
[2017-05-18] MEDS: Famotidine 20 MG TAB PO SCH (08:59)
--- NOTE | 2017-05-18 09:19 | RAD ---
PORTABLE CHEST 1 VIEW: Date: 05/18/17 Time: 0719 hours HISTORY: Hypoxia. FINDINGS/IMPRESSION: Comparison made with exam of 05/15/17. The heart size is borderline. The aorta is tortuous. Evidence of old granulomatous disease again seen . Patchy density in the left lung base is again noted. No pneumothoraces or large effusions are seen. POS: [facility]
--- NOTE | 2017-05-18 16:34 | PRG ---
DATE OF SERVICE: 05/18/2017 SUBJECTIVE: Ms. Acuña is doing well. Denies any complaints except for pain. She also apparently took MiraLax at home and wants to get back on it. No other questions or concerns. OBJECTIVE: VITAL SIGNS: She is afebrile, heart rate is 74, respirations 18, oxygen saturation 92% on 2.5 liters , blood pressure is 119/72. CARDIOVASCULAR SYSTEM: S1 and S2 plus. RESPIRATORY SYSTEM: Normal vesicular breath sounds. ABDOMEN: Soft, nontender, bowel sounds heard in all quadrants. EXTREMITIES: Without cyanosis or clubbing. CENTRAL NERVOUS SYSTEM: Improving deconditioning. IMPRESSION: 1. Pelvis fracture extending into the left acetabulum. 2. Chronic obstructive pulmonary disease. 3. Escherichia coli urinary tract infection. 4. Paroxysmal atrial fibrillation. 5. Deconditioning. PLAN: 1. Continue current medications. 2. Nutritional support. 3. DVT and stress ulcer prophylaxis. 4. Decubitus precautions. 5. Continue to monitor heart rate. 6. Antibiotic Bactrim for duration of 7-10 days and resume MiraLax.
[2017-05-18] MEDS: Polyethylene Glycol 3350 17 GM Packet PO SCH (20:42)
[2017-05-18] MEDS: Latanoprost 0.005% Ophth Soln 2.5 ml Bottle EA EYE SCH (20:42)
[2017-05-19] MEDS: Sulfameth/Trimethoprim DS 800-160mg TAB PO SCH ×2 (09:30→20:58)
[2017-05-19] MEDS: Citalopram 10 MG TAB PO SCH (09:30)
[2017-05-19] MEDS: Famotidine 20 MG TAB PO SCH (09:30)
[2017-05-19] MEDS: Amiodarone 200 MG TAB PO SCH (09:30)
[2017-05-19] MEDS: Aspirin 325 MG TAB PO SCH (09:30)
[2017-05-19] MEDS: Docusate 100 MG CAP PO SCH ×2 (09:30→20:58)
[2017-05-19] MEDS ORDERED: Bisacodyl 10 MG SUPP PR PRN (11:20)
--- NOTE | 2017-05-19 11:30 | PRG ---
DATE OF SERVICE: 05/19/2017 SUBJECTIVE: Ms. Acuña is doing well except for constipation. She states that the MiraLax helps, but i t takes a while and she would like some suppositories. No other concerns. OBJECTIVE: VITAL SIGNS: She is afebrile, heart rate is 77, respirations 20, oxygen saturation 90% on 3 liters, blood pressure 117/55. CARDIOVASCULAR SYSTEM: S1 and S2 plus. RESPIRATORY SYSTEM: Normal vesicular breath sounds. ABDOMEN: Soft, nontender, bowel sounds heard in all quadrants. EXTREMITIES: Without cyanosis or clubbing. CENTRAL NERVOUS SYSTEM: Generalized weakness. IMPRESSION: 1. Constipation. 2. Pelvis fracture extending into the left acetabulum. 3. Chronic obstructive pulmonary disease. 4. Paroxysmal atrial fibrillation. 5. Deconditioning. PLAN: 1. Dulcolax suppository b.i.d. p.r.n. 2. Continue current medications. 3. Continue antibiotics for Escherichia coli urinary tract infection. 4. Deep venous thrombosis and stress ulcer prophylaxis. 5. Decubitus precautions. 6. Physical therapy. 7. Dr. Teddy Shay back tonight.
[2017-05-19] MEDS: traMADol HCl 50 MG TAB PO PRN (20:57)
[2017-05-19] MEDS: ALPRAZolam 0.25 MG TAB PO PRN (20:57)
[2017-05-19] MEDS: Latanoprost 0.005% Ophth Soln 2.5 ml Bottle EA EYE SCH (20:58)
[2017-05-19] MEDS: Ondansetron ODT 4 MG TAB PO PRN (20:58)
[2017-05-19] MEDS: Polyethylene Glycol 3350 17 GM Packet PO SCH (20:59)
[2017-05-20] MEDS: Amiodarone 200 MG TAB PO SCH (08:54)
[2017-05-20] MEDS: ALPRAZolam 0.25 MG TAB PO PRN (08:55)
[2017-05-20] MEDS: Famotidine 20 MG TAB PO SCH (08:55)
[2017-05-20] MEDS: Aspirin 325 MG TAB PO SCH (08:55)
[2017-05-20] MEDS: Citalopram 10 MG TAB PO SCH (08:55)
[2017-05-20] MEDS: Sulfameth/Trimethoprim DS 800-160mg TAB PO SCH (08:55)
[2017-05-20] MEDS: Docusate 100 MG CAP PO SCH (08:55)
[2017-05-20] MEDS: Ondansetron ODT 4 MG TAB PO PRN (08:56)
[2017-05-20] MEDS: traMADol HCl 50 MG TAB PO PRN (08:56)
[2017-05-20 09:10] VITALS: BP 113/55; TEMP 97.7
[2017-05-20 10:32] LABS: #Basophils 0.2 thou/uL (0.0-0.2); #Eosinphils 0.2 thou/uL (0.0-0.7); #Lymphocytes 1.1 thou/uL (1.20-3.40); #Monocytes 0.8 thou/uL (0.11-0.59); #Neutrophils 6.6 thou/uL (1.40-6.50); %Basophils 1.9 % (0.0-1.0); %Eosinophils 1.8 % (0.0-10.0); %Monocytes 9.2 % (0.0-10.0); %Neutrophils 75.1 % (42.0-75.0); Hemoglobin 10.5 g/dL (12.0-16.0); Mean Corpuscular HGB CONC 33.7 g/dL (32.0-36.0); Mean Corpuscular Hemoglobin 29.7 pg (27.0-31.0); Mean Corpuscular Volume 88.1 fl (81.0-99.0); Mean Platelet Volume 6.5 fL (7.4-10.4); Platelet Count 491 thou/uL (130-400); RBC Distribution Width 12.1 % (11.5-14.5); Red Blood Cell (RBC) Count 3.55 mill/uL (4.20-5.40); White Blood Cell (WBC) Count 8.8 thou/uL (4.8-10.8)
[2017-05-20 10:36] LABS: ALT (SGPT) 29 U/L (8-55); AST (SGOT) 31 U/L (5-34); Albumin 3.1 g/dL (3.4-4.8); Alkaline Phosphatase 63 U/L (40-150); Anion Gap 12 mmol/L (10-20); BUN (Urea Nitrogen) 6 mg/dL (9.8-20.1); Bilirubin, Total 0.3 mg/dL (0.2-1.2); Calc. Creatinine Clearance 60 mL/min (70-130); Calcium 8.7 mg/dL (7.8-10.44); Carbon Dioxide 28 mmol/L (23-31); Chloride 92 mmol/L (98-107); Estimated GFR-MDRD Greater than 90; Globulin 2.9 g/dL (2.4-3.5); Glucose 94 mg/dL (83-110); Potassium 4.1 mmol/L (3.5-5.1); Sodium 128 mmol/L (136-145)
[2017-05-20] MEDS ORDERED: Temazepam 15 MG CAP PO PRN (11:10)
--- NOTE | 2017-05-21 07:11 | DIS ---
DATE OF ADMISSION: [facility] Acute Unit on 05/13/2017 DATE OF TRANSFER TO SKILLED UNIT: 05/20/2017 FINAL DIAGNOSES: Left pubic ramus, inferior and superior plus nondisplaced fracture of the anterior aspect of the right sacrum and nondisplaced fracture of the right pubic and into the anterior c olumn of right acetabulum, osteoporosis, E. coli urinary tract infection. SECONDARY DIAGNOSES: Paroxysmal atrial fibrillation, controlled now on amiodarone with sinus rhythm; severe macular degeneration with legal blindness; severe peripheral vascular disease, status post le ft femoral popliteal bypass; severe anxiety; history of nicotine and alcohol abuse with no further sm oking, but still drinking 2-3 drinks of alcohol daily. HOSPITAL COURSE: The patient is an unfortunate 82-year-old white female with a history of osteoporos is, degenerative disk disease, peripheral vascular disease, and paroxysmal atrial fibrillation who rangel s been unable to tolerate anticoagulation secondary to most likely her recurrent drinking alcohol and has been placed on amiodarone, is now in sinus rhythm; however, she tripped over her walker with no syncopal episodes and fell hard on the floor with subsequent fracture of her left inferior and superi or pubic ramus, but also the right pubic ramus and right sacrum and acetabulum. She, therefore, admit kemi to the hospital for pain relief as she was in severe pain on any movement, was started on [place] a s needed, Zofran as needed, had some persistent pain over several days, it became stabilized. Her at ria fibrillation remained in sinus rhythm on amiodarone. Her degenerative disk disease remained sta ble with no significant increase in her back pain and peripheral vascular disease showed no symptoms. She slowly, but surely decreased her pain. She had some problems with constipation which improved finally. She does have some mild hypoxia, but this resolved with oxygen which has been improved and resolved, and she began to move around. She, however, was unable to maintain her ADLs or do any sign ificant therapy and will be transferred to the skilled unit for continued pain relief and therapy. O rthopedic surgeon will be consulted to evaluate her films to see if any further therapy is required a nd how long she should possibly be on weightbearing. She will be continued on her previous medicatio ns of Xanax 0.25 mg 4 times daily as needed, temazepam 30 mg daily, tramadol 50 mg every 4 hours as n eeded, MiraLax 17 grams nightly, docusate 100 mg twice daily, Dulcolax 100 mg as needed p.r.n., baclo fen 10 mg every 8 hours as needed for muscle spasms, Bactrim-DS twice daily for 10 days and finish co urse of urinary tract infection, Zofran as needed for nausea, milk of magnesia p.r.n. as needed for c onstipation, latanoprost 1 drop in each eye nightly for glaucoma, hydrocodone 10/325 every 4 hours as needed for pain, famotidine 20 mg twice daily, citalopram 10 mg daily, docusate 100 mg twice daily, aspirin 81 daily, amiodarone 400 mg daily. She will be followed in the [facility] by myself until she hopefully can be discharged sameer pepe buck.
== END 2017-05-20 17:42 | disposition swing bed (61) | DRG 535 ==
LOC: NAV ACUTE 11:55
PROVIDERS: ADMIT Internal Medicine; ATTEND Internal Medicine
DX: S32.592A Other specified fracture of left pubis, initial encounter for closed fracture (principal); S32.434A Nondisplaced fracture of anterior column [iliopubic] of right acetabulum, initial encounter for closed fracture; I48.0 Paroxysmal atrial fibrillation; S32.19XA Other fracture of sacrum, initial encounter for closed fracture; N39.0 Urinary tract infection, site not specified; S32.591A Other specified fracture of right pubis, initial encounter for closed fracture; J44.9 Chronic obstructive pulmonary disease, unspecified; B96.20 Unspecified Escherichia coli [E. coli] as the cause of diseases classified elsewhere; G47.00 Insomnia, unspecified; F41.9 Anxiety disorder, unspecified; M81.0 Age-related osteoporosis without current pathological fracture; H35.30 Unspecified macular degeneration; H54.8 Legal blindness, as defined in USA; I73.9 Peripheral vascular disease, unspecified; F10.10 Alcohol abuse, uncomplicated; K59.00 Constipation, unspecified; R09.02 Hypoxemia; Z87.891 Personal history of nicotine dependence; Z79.82 Long term (current) use of aspirin; Z79.899 Other long term (current) drug therapy; W01.0XXA Fall on same level from slipping, tripping and stumbling without subsequent striking against object, initial encounter
CPT/HCPCS: 36415; 51702; 71045; 72128; 72131; 72170; 72192; 80048; 80053; 81003; 81015; 85025; 85610; 85730; 86850; 86900; 86901; 87077; 87086; 87186; 94760; 96361; 96374; 96375; 96376; A4216; J2270; J2405; J7050; Q0162

== ENCOUNTER 2017-05-20 17:45 | Inpatient (IN) | payer MEDICARE ==
[2017-05-20] MEDS ORDERED: Zolpidem Tartrate 5 MG TAB PO PRN (18:11)
[2017-05-20] MEDS ORDERED: Milk Of Magnesia 30 ML UDCUP PO PRN (18:11)
[2017-05-20 19:00] VITALS: BMI 18.8
[2017-05-20] MEDS: Sulfameth/Trimethoprim DS 800-160mg TAB PO SCH (21:31)
[2017-05-20] MEDS: Docusate 100 MG CAP PO SCH (21:31)
[2017-05-20] MEDS: HYDROcodone/Acetaminophen 10/325 mg Tablet PO PRN (21:32)
[2017-05-20] MEDS: ALPRAZolam 0.25 MG TAB PO PRN (21:32)
[2017-05-20] MEDS: Ondansetron ODT 4 MG TAB PO PRN (21:32)
[2017-05-20] MEDS: Famotidine 20 MG TAB PO SCH (21:34)
[2017-05-20] MEDS: Latanoprost 0.005% Ophth Soln 2.5 ml Bottle EA EYE SCH (21:34)
[2017-05-21] MEDS ORDERED: Amiodarone 200 MG TAB PO SCH (09:00)
[2017-05-21] MEDS: ALPRAZolam 0.25 MG TAB PO PRN ×2 (09:26→20:53)
[2017-05-21] MEDS: Docusate 100 MG CAP PO SCH ×2 (09:26→20:53)
[2017-05-21] MEDS: Sulfameth/Trimethoprim DS 800-160mg TAB PO SCH ×2 (09:26→20:53)
[2017-05-21] MEDS: Citalopram 10 MG TAB PO SCH (09:26)
[2017-05-21] MEDS: Famotidine 20 MG TAB PO SCH ×2 (09:26→20:53)
[2017-05-21] MEDS: Ondansetron ODT 4 MG TAB PO PRN ×2 (09:28→20:52)
[2017-05-21] MEDS: HYDROcodone/Acetaminophen 10/325 mg Tablet PO PRN ×2 (09:28→20:52)
--- NOTE | 2017-05-21 13:20 | HP ---
DATE OF ADMISSION: 05/21/2017 HISTORY OF PRESENT ILLNESS: The patient is an 82-year-old white female with a long history of osteop orosis, degenerative disk disease, peripheral vascular disease, paroxysmal atrial fibrillation, nicot ine abuse and subsequent COPD who has also had some chronic alcohol use, presents with fall, subseque nt fracture of her left superior and inferior pubic ramus and also fracture of right sacrum extending into the anterior acetabulum. She has had significant pain which is improving now controlled on hyd rocodone and is working with therapy, transferring in the bed and sitting with assistance. She has b een maintained nonweightbearing, cause extension of the fracture acetabulum, but we will discuss with Orthopedics and we will most likely progress her weightbearing today. She has developed urinary tra ct infection which is improving on Bactrim DS twice daily. We will continue on this. Her atrial fib rillation has been controlled in sinus rhythm on amiodarone 400 daily, and she is not on any anticoag ulation because of inability to maintain therapeutic PT and INR. PAST MEDICAL HISTORY AND REVIEW OF SYSTEM: As in previous history to the acute unit. ALLERGIES: She has history of allergies to IODINE. PHYSICAL EXAMINATION: GENERAL: Patient is a thin, elderly white female sleeping at this time. No distress, awake and slig htly confused, but in no distress. VITAL SIGNS: Temperature is 98.4, pulse 91, respirations 20, O2 sats 93% on 2 liter nasal cannula. HEENT: Pupils are equal, round, and react to light and accommodation. LUNGS: Clear. CARDIAC: Examination showed regular rhythm. NECK: Supple. JVP is not elevated. ABDOMEN: Soft and nontender. SKIN/EXTREMITIES: Show no bruising or bleeding. Pain on movement of the left hip, but not to the ri ght hip. NEUROLOGIC: Intact. LABORATORY DATA: Most recent laboratories yesterday showed hematocrit of 31, hemoglobin 10. White c ount 8800, sodium is 128, potassium 4.1, chloride 92, bicarbonate 28, BUN 6. ASSESSMENT AND PLAN: 1. Resolving pubic ramus fractures of left side and right sacral fracture with some extension of rig ht acetabulum with decreasing pain. 2. Stable atrial fibrillation converted on amiodarone. 3. Urinary tract infection secondary to Escherichia coli, responding to Bactrim DS. PLAN: Discuss weightbearing with Orthopedics. Continue Bactrim DS. Continue PT, OT. Continue hydr ocodone as needed for pain relief.
[2017-05-21] MEDS: Latanoprost 0.005% Ophth Soln 2.5 ml Bottle EA EYE SCH (20:54)
[2017-05-22] MEDS: Citalopram 10 MG TAB PO SCH (08:53)
[2017-05-22] MEDS: Famotidine 20 MG TAB PO SCH ×2 (08:54→19:59)
[2017-05-22] MEDS: Amiodarone 200 MG TAB PO SCH (08:54)
[2017-05-22] MEDS: Docusate 100 MG CAP PO SCH ×2 (08:54→19:58)
[2017-05-22] MEDS: HYDROcodone/Acetaminophen 10/325 mg Tablet PO PRN ×2 (08:54→19:59)
--- NOTE | 2017-05-22 09:09 | PRG ---
DATE OF SERVICE: 05/22/2017 SUBJECTIVE: The patient feels much better with decreased pain in her leg. She slept well through night, is having some problems with swelling of her tongue since being placed on Bactrim. She has no previous history of Bactrim allergies. She has had a good appetite and eating well and has been c ooperating with therapy. OBJECTIVE: VITAL SIGNS: Blood pressure is 142/63, O2 sats 91%, respirations 18, pulse 75, afebrile. LUNGS: Lungs are clear. CARDIAC: Cardiac examination shows regular rhythm. ABDOMEN: Abdomen is soft and nontender. SKIN AND EXTREMITIES: Skin and extremities display no edema, erythema, warmth. A phone consultation with Dr. Napoles, reviewed the films, feels that the patient can be weightbearing as these are nonweightbearing fractures. Also reviewed records from previous initiation of amiodaro ne therapy and the patient is due to have the amiodarone decreased and this has been decreased to 200 mg daily. ASSESSMENT: 1. Urinary tract infection secondary to Escherichia coli sensitive to multiple antibiotics with poss ible reaction to the Bactrim she is on, so we will change to amoxicillin 500 three times daily. 2. Atrial fibrillation converted to sinus rhythm on amiodarone 400 daily, and will decrease dose to 200 mg daily and obtain EKG. 3. Resolving pubic ramus fracture and sacral fracture with release for weightbearing and we will con michael PT, OT. 4. Escobedo catheterization secondary to pain and will discontinue this at this time as the patient is able to ambulate to the bedside commode or bedside rasmussen.
[2017-05-22] MEDS ORDERED: AMOXicillin 500 MG CAP PO SCH (14:00)
[2017-05-22] MEDS: AMOXicillin 250 MG CAP PO SCH ×2 (14:17→19:58)
[2017-05-22] MEDS: Latanoprost 0.005% Ophth Soln 2.5 ml Bottle EA EYE SCH (19:59)
[2017-05-23] MEDS: AMOXicillin 250 MG CAP PO SCH ×3 (04:58→19:49)
[2017-05-23] MEDS ORDERED: Cyclobenzaprine 10 MG TAB PO PRN ×2 (08:09→17:15)
[2017-05-23] MEDS: Citalopram 10 MG TAB PO SCH (09:24)
[2017-05-23] MEDS: Famotidine 20 MG TAB PO SCH ×2 (09:25→19:49)
[2017-05-23] MEDS: HYDROcodone/Acetaminophen 10/325 mg Tablet PO PRN ×2 (09:25→19:49)
[2017-05-23] MEDS: Amiodarone 200 MG TAB PO SCH (09:25)
[2017-05-23] MEDS: Docusate 100 MG CAP PO SCH ×2 (09:25→19:49)
[2017-05-23] MEDS: Latanoprost 0.005% Ophth Soln 2.5 ml Bottle EA EYE SCH (19:51)
[2017-05-24] MEDS: AMOXicillin 250 MG CAP PO SCH ×3 (06:08→19:46)
[2017-05-24] MEDS: Amiodarone 200 MG TAB PO SCH (09:06)
[2017-05-24] MEDS: Docusate 100 MG CAP PO SCH ×2 (09:06→19:46)
[2017-05-24] MEDS: Citalopram 10 MG TAB PO SCH (09:07)
[2017-05-24] MEDS: Famotidine 20 MG TAB PO SCH ×2 (09:07→19:46)
[2017-05-24] MEDS ORDERED: Loratadine 10 MG TAB PO PRN (10:07)
--- NOTE | 2017-05-24 10:31 | PRG ---
DATE OF SERVICE: 05/23/2017 SUBJECTIVE: The patient feels well except for postnasal drainage, congestion, mild nausea. Has been sleeping better, having persistent but slightly decreased pain and has been cooperating with therapy . OBJECTIVE: GENERAL: Shows that her therapist states that she walked 46 feet, 58 feet yesterday with a rolling w alker, but still had 8/10 pain, constant pain in her back and asking if she can see Dr. Gabriela almaraz n the hospital. VITAL SIGNS: Showed her temperature to be 98.1, pulse 69, respirations 18, O2 saturation 95%, blood pressure 128/59. LUNGS: Clear. CARDIAC: Shows regular rhythm. No gallops or murmurs. ABDOMEN: Soft and nontender. SKIN AND EXTREMITIES: Display tenderness to palpation of both hips, but with no erythema or bruising . ASSESSMENT: 1. Resolving left pubic ramus fracture and right pubic ramus fracture with sacral fracture. 2. Atrial fibrillation in sinus rhythm, on Cordarone 200 mg daily. 3. Urinary tract infection, on amoxicillin for E. coli sensitive infection. 4. Most likely allergic symptoms possibly secondary to pollen appears to be, but may be due to medic ation and we will follow closely.
--- NOTE | 2017-05-24 10:40 | PRG ---
DATE OF SERVICE: 05/24/2017 SUBJECTIVE: The patient feels well except for nasal congestion, postnasal drainage, and recurrent mi ld nausea. She did sleep 6 hours last night and has been getting up working with therapy, still stat es she is having significant pain and is asking for followup with Dr. Vlad Ochoa on discharge. She is denying any dysuria or hematuria. OBJECTIVE: VITAL SIGNS: Shows her blood pressure is 124/59, O2 sats 96%, respirations 16, pulse 73, and afebril e. LUNGS: Clear. CARDIAC: Shows regular rhythm. ABDOMEN: Soft and nontender. SKIN AND EXTREMITIES: Show no ecchymoses or bruising. ASSESSMENT: 1. Resolving left pubic ramus fracture, right sacral fracture. 2. Resolving Escherichia coli urinary tract infection. 3. Recurrent postnasal drainage most likely due to allergies and has no change with change in antibi otics. 4. History of atrial fibrillation converted and controlled in sinus rhythm on amiodarone with no ant icoagulation. PLAN: 1. Solu-Medrol 80 mg IM now. 2. Continue amoxicillin. 3. Continue physical therapy and occupational therapy. 4. Repeat basic metabolic profile and CBC today.
[2017-05-24 11:30] LABS: Anion Gap 12 mmol/L (10-20); BUN (Urea Nitrogen) 5 mg/dL (9.8-20.1); Calc. Creatinine Clearance 61 mL/min (70-130); Calcium 9.1 mg/dL (7.8-10.44); Carbon Dioxide 28 mmol/L (23-31); Chloride 90 mmol/L (98-107); Estimated GFR-MDRD Greater than 90; Glucose 113 mg/dL (83-110); Potassium 4.2 mmol/L (3.5-5.1); Sodium 126 mmol/L (136-145)
[2017-05-24 11:31] LABS: #Basophils 0.1 thou/uL (0.0-0.2); #Eosinphils 0.1 thou/uL (0.0-0.7); #Lymphocytes 1.7 thou/uL (1.20-3.40); #Monocytes 0.9 thou/uL (0.11-0.59); #Neutrophils 8.9 thou/uL (1.40-6.50); %Basophils 0.8 % (0.0-1.0); %Eosinophils 0.7 % (0.0-10.0); %Lymphocytes 14.3 % (21.0-51.0); %Neutrophils 76.3 % (42.0-75.0); Hemoglobin 10.8 g/dL (12.0-16.0); Mean Corpuscular HGB CONC 33.8 g/dL (32.0-36.0); Mean Corpuscular Hemoglobin 29.5 pg (27.0-31.0); Mean Corpuscular Volume 87.3 fl (81.0-99.0); Mean Platelet Volume 6.2 fL (7.4-10.4); Platelet Count 720 thou/uL (130-400); RBC Distribution Width 12.1 % (11.5-14.5); Red Blood Cell (RBC) Count 3.65 mill/uL (4.20-5.40); White Blood Cell (WBC) Count 11.6 thou/uL (4.8-10.8)
[2017-05-24] MEDS: Latanoprost 0.005% Ophth Soln 2.5 ml Bottle EA EYE SCH (19:46)
[2017-05-24] MEDS: guaiFENesin ER 600 MG TAB PO PRN (19:47)
[2017-05-24] MEDS: HYDROcodone/Acetaminophen 10/325 mg Tablet PO PRN (19:47)
[2017-05-24] MEDS: ALPRAZolam 0.25 MG TAB PO PRN (19:48)
[2017-05-24] MEDS ORDERED: Nystatin 500,000 UNITS/5 ML UDCUP PO SCH (22:30)
[2017-05-25] MEDS: AMOXicillin 250 MG CAP PO SCH ×3 (05:29→20:12)
--- NOTE | 2017-05-25 07:24 | PRG ---
DATE OF SERVICE: 05/25/2017 DATE OF ADMISSION: 05/20/2017 HISTORY OF PRESENT ILLNESS: Ms. Acuña is an 82-year-old white female that unfortunately fell and susta ined a left superior and inferior pubic ramus fracture and a fracture of the right sacrum extending i nto the anterior acetabulum. She eventually was stabilized and transferred to [facility] for physical therapy and occupational therapy and pain management. Ms. Acuña states she is feeling fairly well this morning. She has no significant pain. She does compl ain of a dry mouth and we started her on some Nystatin last night. She also does have a urinary trac t infection which was growing E. coli which is being treated. She has no other specific complaints t stan. PHYSICAL EXAMINATION: VITAL SIGNS: Reveal blood pressure last night 120/62, pulse 72, respirations 16-18, O2 sat 92%-96% o n 2 liters nasal cannula, T-max 98.7. GENERAL: This is a well-developed, well-nourished, white female that is sleepy, but arousable. She has no other specific complaints today except for her tongue. HEENT: Reveals normocephalic, nontraumatic cranium. The pupils are equally round and reactive. [place] looks somewhat dry and has a white curdy looking deposit on the left posterior border. NECK: Supple, without mass, nodes or bruits. CHEST: Clear to auscultation. No rales, rhonchi or wheezes are heard. HEART: Reveals a regular rate and rhythm without murmurs, gallops or rubs. ABDOMEN: Soft, nontender, without organomegaly. Normal bowel sounds are noted. No rebound or guard ing is noted. : Deferred. EXTREMITIES: Show no clubbing, cyanosis or edema. IMPRESSION: 1. Left pubic ramus fracture and right sacral fracture. 2. Escherichia coli urinary tract infection, improved. 3. Possible thrush in her mouth, treated with nystatin. 4. Allergic rhinitis. 5. History of atrial fibrillation converted, controlled, presently on amiodarone. 6. Generalized weakness. PLAN: 1. Continue present antibiotics. 2. Continue Nystatin which was started last night. 3. Stress ulcer prophylaxis. 4. Decubitus precautions. 5. Deep venous thrombosis prophylaxis. 6. Continue physical therapy and occupational therapy.
[2017-05-25] MEDS: HYDROcodone/Acetaminophen 10/325 mg Tablet PO PRN ×3 (07:46→20:05)
[2017-05-25] MEDS: Ondansetron ODT 4 MG TAB PO PRN (07:47)
[2017-05-25] MEDS: ALPRAZolam 0.25 MG TAB PO PRN ×3 (07:47→20:06)
[2017-05-25] MEDS: Docusate 100 MG CAP PO SCH ×2 (08:58→20:05)
[2017-05-25] MEDS: Amiodarone 200 MG TAB PO SCH (08:58)
[2017-05-25] MEDS: Citalopram 10 MG TAB PO SCH (08:58)
[2017-05-25] MEDS: Famotidine 20 MG TAB PO SCH ×2 (08:58→20:05)
[2017-05-25] MEDS: Nystatin 500,000 UNITS/5 ML UDCUP PO SCH ×4 (08:59→20:07)
[2017-05-25] MEDS: guaiFENesin ER 600 MG TAB PO PRN (20:06)
[2017-05-25] MEDS: Latanoprost 0.005% Ophth Soln 2.5 ml Bottle EA EYE SCH (20:06)
[2017-05-26] MEDS: AMOXicillin 250 MG CAP PO SCH ×3 (05:58→20:48)
--- NOTE | 2017-05-26 07:42 | PRG ---
DATE OF SERVICE: 05/26/2017 DATE OF ADMISSION: 05/20/2017 HISTORY OF PRESENT ILLNESS: Ms. Acuña is a very pleasant 82-year-old white female that unfortunately f ell and sustained left superior and inferior pubic rami fractures along with a right sacral fracture extending to the anterior acetabulum. She was stabilized and then transferred to [facility] for physical therapy and occupational therapy and pain management. The patient states she is doing well today and has no complaints. Her pain seems to be slowly improving. She did complain of dry mouth yesterday and was started on nystatin. She thinks that might be better. She also has a u rinary tract infection growing E. coli which we are treating. She has no complaints today. OBJECTIVE: VITAL SIGNS: Today reveal blood pressure is 130/70, pulse 69, respirations 18, O2 sat 97%-98% on 2 l iters, T-max is 98.9. GENERAL: This is a well-developed, well-nourished, thin white female in no apparent distress at this time. HEENT: Reveals normocephalic, nontraumatic cranium. Pupils are equally round and reactive. Extraoc ular movements are intact. Nose and throat are slightly clear. Tongue looks still dry, but not as m uch white curdy looking deposits on it. NECK: Supple, without mass, nodes or bruits. CHEST: Clear to auscultation. No rales, rhonchi or wheezes are heard. No cough is noted. HEART: Reveals a regular rate and rhythm without murmurs, gallops or rubs. ABDOMEN: Soft and nontender, without organomegaly, normal bowel sounds are noted. No rebound or gua rding is noted. GENITOURINARY: Deferred. EXTREMITIES: Reveal no clubbing, cyanosis or edema. IMPRESSION: 1. Left pubic ramus fracture and right sacral fracture. 2. Escherichia coli urinary tract infection, improved. 3. Thrush in the mouth, treated with nystatin swish and swallow. 4. Allergic rhinitis. 5. History of atrial fibrillation, converted, not controlled, presently on amiodarone. 6. Generalized weakness. PLAN: 1. Continue present antibiotics. 2. Continue nystatin. 3. Stress ulcer prophylaxis. 4. Decubitus precautions. 5. Deep venous thrombosis prophylaxis. 6. Continue physical therapy and occupational therapy.
[2017-05-26] MEDS: Famotidine 20 MG TAB PO SCH ×2 (09:06→20:47)
[2017-05-26] MEDS: Docusate 100 MG CAP PO SCH ×2 (09:06→20:48)
[2017-05-26] MEDS: HYDROcodone/Acetaminophen 10/325 mg Tablet PO PRN ×2 (09:06→20:47)
[2017-05-26] MEDS: Citalopram 10 MG TAB PO SCH (09:06)
[2017-05-26] MEDS: Amiodarone 200 MG TAB PO SCH (09:06)
[2017-05-26] MEDS: ALPRAZolam 0.25 MG TAB PO PRN ×2 (09:06→20:48)
[2017-05-26] MEDS: Nystatin 500,000 UNITS/5 ML UDCUP PO SCH ×4 (09:08→20:54)
[2017-05-26] MEDS: Bisacodyl 10 MG SUPP PR PRN (18:00)
[2017-05-26] MEDS: Latanoprost 0.005% Ophth Soln 2.5 ml Bottle EA EYE SCH (20:49)
[2017-05-26] MEDS ORDERED: Nystatin 500,000 UNITS/5 ML UDCUP ONE ×2 (20:54→20:57)
[2017-05-27] MEDS: AMOXicillin 250 MG CAP PO SCH ×3 (05:02→19:24)
[2017-05-27] MEDS: Citalopram 10 MG TAB PO SCH (08:53)
[2017-05-27] MEDS: Amiodarone 200 MG TAB PO SCH (08:54)
[2017-05-27] MEDS: Docusate 100 MG CAP PO SCH ×2 (08:54→19:24)
[2017-05-27] MEDS: Famotidine 20 MG TAB PO SCH ×2 (08:54→19:24)
[2017-05-27] MEDS: Nystatin 500,000 UNITS/5 ML UDCUP PO SCH ×4 (09:02→19:25)
[2017-05-27] MEDS: HYDROcodone/Acetaminophen 10/325 mg Tablet PO PRN ×2 (09:02→19:25)
[2017-05-27] MEDS ORDERED: Nitroglycerin 0.4 MG TAB (25 Tab Bottle) ONE (12:17)
[2017-05-27] MEDS ORDERED: Nitroglycerin 0.4 MG TAB (25 Tab Bottle) SL PRN (12:52)
[2017-05-27 12:53] LABS: CKMB 0.4 ng/mL (0-6.6); Troponin I Less than 0.010 ng/mL (< 0.028)
--- NOTE | 2017-05-27 16:01 | PRG ---
DATE OF SERVICE: 05/27/2017 SUBJECTIVE: The patient feels well this morning with decreasing pain, increasing strength, but then later in the morning had an episode of substernal chest pain, neck pain, relieved by nitroglycerin. OBJECTIVE: VITAL SIGNS: Remained the same with a blood pressure of 107/54, pulse 77, O2 sats 97% on 2 liters. This was a decrease from previous blood pressure 137/65. LUNGS: Clear. CARDIAC: Showed regular rhythm. ABDOMEN: Soft, nontender. NEUROLOGIC: Showed no focal findings. Chest EKG only showed right bundle branch block, normal sinus rhythm, no acute changes and initial tr oponin, cardiac enzymes, and CK-MB were negative. ASSESSMENT: 1. Resolving left pubic ramus fracture, right sacral fracture. 2. Resolving Escherichia coli urinary tract infection. 3. History of atrial fibrillation converted on amiodarone in sinus rhythm. 4. New onset of chest pain consistent with angina, relieved by nitroglycerin with negative cardiac e nzymes. PLAN: Repeat troponin later today and in the a.m. EKG in the a.m. Continue nitroglycerin as needed for pain. Discuss further workup with patient.
[2017-05-27 16:42] LABS: CKMB 0.4 ng/mL (0-6.6); Troponin I 0.012 ng/mL (< 0.028)
[2017-05-27] MEDS: Latanoprost 0.005% Ophth Soln 2.5 ml Bottle EA EYE SCH (19:24)
[2017-05-27] MEDS: ALPRAZolam 0.25 MG TAB PO PRN (19:26)
[2017-05-28] MEDS: AMOXicillin 250 MG CAP PO SCH ×3 (05:49→19:26)
[2017-05-28 06:14] LABS: Troponin I Less than 0.010 ng/mL (< 0.028)
--- NOTE | 2017-05-28 07:02 | PRG ---
DATE OF SERVICE: 05/28/2017 SUBJECTIVE: The patient feels well, slept somewhat poorly through the night, but did get some rest. She has had no further chest pain, but did have an episode of substernal chest pain radiating to the right upper quadrant yesterday, described as a squeezing substernal pain, not associated with any na usea, diaphoresis. It was relieved by nitroglycerin x1 sublingual. OBJECTIVE: EKG only showed right bundle branch block, normal sinus rhythm. Cardiac enzymes x3 have been negative. LUNGS: Lungs are clear today. CARDIAC: Cardiac examination shows regular rhythm. The patient did work well with therapy yesterday, transferring with assistance and going to the bathr oom and is asking about being discharged home as her pain has greatly improved and controlled with or al [place]. ASSESSMENT: 1. Resolving pelvic fractures, pubic ramus and sacrum. 2. New onset of chest pain consistent with angina in a patient with documented peripheral vascular d isease and a long smoking history. PLAN: 1. Start Imdur 30 mg daily for medical conservative treatment. This patient does not wish further e valuation. 2. Discuss with physical therapy progress and possible discharge date. 3. Continue pain relief with hydrocodone and anxiety relief with alprazolam. 4. Finish treatment of urinary tract infection tomorrow with full course of amoxicillin. 5. Paroxysmal atrial fibrillation, controlled normal sinus rhythm on amiodarone 200 daily, and will continue.
[2017-05-28] MEDS: Citalopram 10 MG TAB PO SCH (09:16)
[2017-05-28] MEDS: Nystatin 500,000 UNITS/5 ML UDCUP PO SCH ×4 (09:16→19:27)
[2017-05-28] MEDS: Famotidine 20 MG TAB PO SCH ×2 (09:16→19:27)
[2017-05-28] MEDS: Amiodarone 200 MG TAB PO SCH (09:18)
[2017-05-28] MEDS: HYDROcodone/Acetaminophen 10/325 mg Tablet PO PRN ×2 (09:18→19:28)
[2017-05-28] MEDS: Docusate 100 MG CAP PO SCH ×2 (09:18→19:27)
[2017-05-28] MEDS: guaiFENesin ER 600 MG TAB PO PRN (12:56)
[2017-05-28] MEDS: Latanoprost 0.005% Ophth Soln 2.5 ml Bottle EA EYE SCH (19:27)
[2017-05-28] MEDS: ALPRAZolam 0.25 MG TAB PO PRN (19:28)
[2017-05-29] MEDS: AMOXicillin 250 MG CAP PO SCH ×3 (05:37→19:30)
[2017-05-29 05:47] LABS: Troponin I Less than 0.010 ng/mL (< 0.028)
[2017-05-29] MEDS ORDERED: Aluminum & Magnesium Hydroxide 60 ML, Lidocaine 2% Viscous Solution 30 ML, diphenhydrAM... SSW PRN (07:00)
[2017-05-29 08:11] LABS: Anion Gap 11 mmol/L (10-20); BUN (Urea Nitrogen) 15 mg/dL (9.8-20.1); Calc. Creatinine Clearance 52 mL/min (70-130); Calcium 8.8 mg/dL (7.8-10.44); Carbon Dioxide 30 mmol/L (23-31); Chloride 96 mmol/L (98-107); Estimated GFR-MDRD 86; Glucose 93 mg/dL (83-110); Potassium 4.4 mmol/L (3.5-5.1); Sodium 133 mmol/L (136-145)
[2017-05-29] MEDS: Amiodarone 200 MG TAB PO SCH (08:44)
[2017-05-29] MEDS: HYDROcodone/Acetaminophen 10/325 mg Tablet PO PRN ×2 (08:45→19:31)
[2017-05-29] MEDS: Saccharomyces boulardii 250 MG CAP PO SCH (08:45)
[2017-05-29] MEDS: Docusate 100 MG CAP PO SCH ×2 (08:45→19:31)
[2017-05-29] MEDS: Famotidine 20 MG TAB PO SCH ×2 (08:45→19:31)
[2017-05-29] MEDS: ALPRAZolam 0.25 MG TAB PO PRN ×2 (08:45→19:31)
[2017-05-29] MEDS: Citalopram 10 MG TAB PO SCH (08:45)
[2017-05-29] MEDS: guaiFENesin ER 600 MG TAB PO PRN (09:14)
[2017-05-29] MEDS: Latanoprost 0.005% Ophth Soln 2.5 ml Bottle EA EYE SCH (19:31)
--- NOTE | 2017-05-29 20:21 | PRG ---
DATE OF SERVICE: 05/29/2017 SUBJECTIVE: The patient feels better, cooperating with therapy, asking when she can be discharged ho me. She is eating fairly well, has had no further chest pain. OBJECTIVE: VITAL SIGNS: Show her to have blood pressure 134/59, O2 sats 97% on room air, pulse 72. LUNGS: Show decreased breath sounds, no rales or rhonchi. CARDIAC: Shows regular rhythm. No gallops or murmurs. LABORATORY DATA: Sodium is 133, potassium 4.4, chloride 96, bicarb 30, BUN 15, creatinine 0.66. ASSESSMENT: 1. Resolving left pubic ramus fracture, right sacral fracture 2. Stable atrial fibrillation converted to sinus rhythm, on amiodarone. 3. Recent episode of chest pain consistent with angina controlled with Imdur. PLAN: 1. Continue PT, OT as they feel she is still unsafe to maintain ADLs at home. Continue to monitor f or chest pain on Imdur and monitor vital signs. 2. Finish amoxicillin course for urinary tract infection. 3. Continue amiodarone to control and convert atrial fibrillation.
[2017-05-30] MEDS: Amiodarone 200 MG TAB PO SCH (08:41)
[2017-05-30] MEDS: Saccharomyces boulardii 250 MG CAP PO SCH (08:42)
[2017-05-30] MEDS: Citalopram 10 MG TAB PO SCH (08:42)
[2017-05-30] MEDS: Famotidine 20 MG TAB PO SCH ×2 (08:42→20:15)
[2017-05-30] MEDS: HYDROcodone/Acetaminophen 10/325 mg Tablet PO PRN ×2 (08:42→18:53)
[2017-05-30] MEDS: Docusate 100 MG CAP PO SCH ×2 (08:42→20:16)
[2017-05-30] MEDS: ALPRAZolam 0.25 MG TAB PO PRN ×2 (08:43→18:53)
[2017-05-30] MEDS: guaiFENesin ER 600 MG TAB PO PRN (08:44)
[2017-05-30] MEDS: Ondansetron ODT 4 MG TAB PO PRN (18:53)
[2017-05-30] MEDS: Latanoprost 0.005% Ophth Soln 2.5 ml Bottle EA EYE SCH (20:16)
--- NOTE | 2017-05-31 08:21 | PRG ---
DATE OF SERVICE: 05/30/2017 SUBJECTIVE: The patient feels well, no pain at rest. Sleeping well through the night, cooperating w ith therapy, but still having pain on ambulation and weak and unsteady on transferring to the [facility]. OBJECTIVE: VITAL SIGNS: Shows her blood pressure is 124/58, temperature 98, pulse 65, respirations 20, O2 sats 92% on room air. LUNGS: Lungs are clear. CARDIAC: Cardiac examination shows regular rhythm. ABDOMEN: Abdomen is soft and nontender. ASSESSMENT: 1. Resolving left pubic ramus fracture, right sacral fracture. 2. Resolved atrial fibrillation on amiodarone. 3. Improving deconditioning. 4. Resolving urinary tract infection. PLAN: 1. Continue PT, OT until safe to maintain ADLs. 2. Continue pain relief as needed. 3. Continue to monitoring for angina, on Imdur. 4. Continue amiodarone to maintain sinus rhythm.
[2017-05-31] MEDS: Bisacodyl 10 MG SUPP PR PRN (09:49)
--- NOTE | 2017-05-31 09:50 | PRG ---
DATE OF SERVICE: 05/31/2017 SUBJECTIVE: The patient up in the [place], walking with therapy, who states that she is standby assista nce at this time and should be ready to be discharged this weekend when family arranges assistance. The patient states she is still having some pain, but is tolerable. She is eating better and is havi ng no further chest pain. OBJECTIVE: VITAL SIGNS: Blood pressure is 128/60, temperature 97, pulse 67, respirations 20, and O2 sats 93% on room air. LUNGS: Clear. CARDIAC: Examination shows regular rhythm. ABDOMEN: Soft and nontender. ASSESSMENT: 1. Resolving pubic fracture, sacral fracture with persistent but decreased pain. 2. Increasing strength, decreasing deconditioning. 3. No further chest pain, possibly due to a controlled angina. 4. Atrial fibrillation converted and controlled in sinus rhythm on amiodarone. PLAN: Continue PT and OT. Discussed discharge planning with family and patient and attempt discharge on 06/03/2017.
[2017-05-31] MEDS: Docusate 100 MG CAP PO SCH ×2 (09:51→20:14)
[2017-05-31] MEDS: Amiodarone 200 MG TAB PO SCH (09:51)
[2017-05-31] MEDS: guaiFENesin ER 600 MG TAB PO PRN (09:51)
[2017-05-31] MEDS: Citalopram 10 MG TAB PO SCH (09:51)
[2017-05-31] MEDS: Saccharomyces boulardii 250 MG CAP PO SCH (09:51)
[2017-05-31] MEDS: Famotidine 20 MG TAB PO SCH ×2 (09:51→20:15)
[2017-05-31] MEDS: ALPRAZolam 0.25 MG TAB PO PRN (20:14)
[2017-05-31] MEDS: Ondansetron ODT 4 MG TAB PO PRN (20:14)
[2017-05-31] MEDS: HYDROcodone/Acetaminophen 10/325 mg Tablet PO PRN (20:15)
[2017-05-31] MEDS: Latanoprost 0.005% Ophth Soln 2.5 ml Bottle EA EYE SCH (20:16)
[2017-06-01] MEDS: Famotidine 20 MG TAB PO SCH ×2 (08:10→20:47)
[2017-06-01] MEDS: Citalopram 10 MG TAB PO SCH (08:10)
[2017-06-01] MEDS: Docusate 100 MG CAP PO SCH ×2 (08:13→20:47)
[2017-06-01] MEDS: Amiodarone 200 MG TAB PO SCH (08:13)
[2017-06-01] MEDS: Saccharomyces boulardii 250 MG CAP PO SCH (08:13)
[2017-06-01] MEDS: guaiFENesin ER 600 MG TAB PO PRN (08:13)
--- NOTE | 2017-06-01 08:15 | PRG ---
DATE OF SERVICE: 06/01/2017 SUBJECTIVE: The patient is up, going to the bathroom with a walker with standby assistance. Still c omplaining of pain, but is tolerable. OBJECTIVE: VITAL SIGNS: Shows temperature is 99, pulse 67, respirations 19, O2 sats 96% on room air, blood pres sure 113/60. LUNGS: Clear. CARDIAC: Examination shows regular rhythm. ABDOMEN: Soft and nontender. ASSESSMENT: 1. Resolving left pubic ramus fracture, right sacral fracture. Increasing strength and conditioning . 2. No further chest pain, presumably due to controlled angina. 3. Atrial fibrillation, converted, controlled sinus rhythm, on amiodarone. PLAN: Continue PT, OT. Plan for discharge on 06/03/2017 to family with assistance at home.
[2017-06-01] MEDS: HYDROcodone/Acetaminophen 10/325 mg Tablet PO PRN (20:46)
[2017-06-01] MEDS: ALPRAZolam 0.25 MG TAB PO PRN (20:46)
[2017-06-01] MEDS: Ondansetron ODT 4 MG TAB PO PRN (20:46)
[2017-06-01] MEDS: Latanoprost 0.005% Ophth Soln 2.5 ml Bottle EA EYE SCH (20:47)
[2017-06-02] MEDS: guaiFENesin ER 600 MG TAB PO PRN (09:18)
[2017-06-02] MEDS: Amiodarone 200 MG TAB PO SCH (09:18)
[2017-06-02] MEDS: Famotidine 20 MG TAB PO SCH ×2 (09:18→20:23)
[2017-06-02] MEDS: Docusate 100 MG CAP PO SCH ×2 (09:18→20:23)
[2017-06-02] MEDS: Citalopram 10 MG TAB PO SCH (09:18)
[2017-06-02] MEDS: Saccharomyces boulardii 250 MG CAP PO SCH (09:18)
--- NOTE | 2017-06-02 10:25 | PRG ---
DATE OF SERVICE: 06/02/2017 SUBJECTIVE: The patient feels well, sitting up in bed, eating her breakfast with decreasing pain, in creasing strength. Realizes that she is unsafe to be discharged home, having main complaint today of not sleeping throughout the night and he has not taken any sleeping medicines at this time. OBJECTIVE: VITAL SIGNS: Temperature 96.1, pulse 81, respirations 20, O2 sats 91% on room air, and blood pressur e 135/63. LUNGS: Clear. CARDIAC: Regular rhythm. ABDOMEN: Soft, nontender except for some mild tenderness in left inguinal area. ASSESSMENT: 1. Resolving left pubic ramus fracture, right sacral fracture with increasing strength and condition ing. 2. Converted atrial fibrillation, on amiodarone, and soreness with sinus rhythm. 3. No further chest pain, possibly due to angina, on isosorbide. 4. Recurrent insomnia. We will start on trazodone 100 mg at night, monitor response today. PLAN: Continue PT, OT tomorrow. Plan for discharge tomorrow with assistance. Family at home.
[2017-06-02] MEDS: Latanoprost 0.005% Ophth Soln 2.5 ml Bottle EA EYE SCH (20:22)
[2017-06-02] MEDS: HYDROcodone/Acetaminophen 10/325 mg Tablet PO PRN (20:23)
[2017-06-02] MEDS: ALPRAZolam 0.25 MG TAB PO PRN (20:23)
[2017-06-02] MEDS: Ondansetron ODT 4 MG TAB PO PRN (20:24)
[2017-06-02] MEDS ORDERED: traZODone HCl 50 MG TAB PO SCH (21:00)
[2017-06-03 08:18] VITALS: TEMP 98.2
[2017-06-03] MEDS: HYDROcodone/Acetaminophen 10/325 mg Tablet PO PRN (09:13)
[2017-06-03] MEDS: Docusate 100 MG CAP PO SCH (09:13)
[2017-06-03] MEDS: Citalopram 10 MG TAB PO SCH (09:13)
[2017-06-03] MEDS: Famotidine 20 MG TAB PO SCH (09:13)
[2017-06-03] MEDS: Amiodarone 200 MG TAB PO SCH (09:13)
[2017-06-03] MEDS: Saccharomyces boulardii 250 MG CAP PO SCH (09:14)
[2017-06-03 13:11] VITALS: BP 126/64
--- NOTE | 2017-06-04 11:42 | DIS ---
DATE OF ADMISSION: 05/20/2017 DATE OF DISCHARGE: 06/03/2017 FINAL DIAGNOSES: 1. Resolving left pubic ramus fracture, right sacral fracture. 2. History of atrial fibrillation converted to sinus rhythm on amiodarone. 3. Insomnia, controlled on trazodone. 4. New onset of angina controlled on Isosorbide. 5. Peripheral vascular disease, asymptomatic. 6. Severe osteoporosis. 7. Degenerative disk disease. 8. History of nicotine abuse. 9. Chronic obstructive pulmonary disease. 10. History of ETOH abuse. 11. Recent urinary tract infection, resolved. HOSPITAL COURSE: The patient is an 82-year-old white female with a long history of osteoporosis, deg enerative disk disease, peripheral vascular disease, paroxysmal atrial fibrillation who has fallen an d suffered a fracture of the left superior and inferior pubic rami as well as a right sacrum extendin g into the anterior aspect. This, however, is a weightbearing fracture except for pain with no ortho pedic treatment required. After consultation, she is therefore admitted and placed at [facility] bed for PT. She has slowly been improving, but has continued to have significant pain, but has been able to begin to maintain her ADLs. She did have urinary tract infection, resolved wit h Bactrim-DS. Her atrial fibrillation has been controlled on amiodarone as she has been maintained a normal sinus rhythm. She has not been on any anticoagulation at her request. Her vital signs remai jaswant stable with a blood pressure of 130/80, temperature is 98, pulse 91, respirations 20, O2 sats 93% on 2 liters initially, but she was essentially weaned off this over the next several days. Hematocr it was 31 on admission, hemoglobin 10, white count 8800. Sodium is 128, potassium 4.1, chloride 92, bicarbonate 28, BUN is 6; however, on discharge, her sodium increased to 133, potassium 4.4, BUN 15, creatinine 0.66. Her vital signs had remained stable. She had been weaned off oxygen and was 96% on room air, able to maintain ADLs and was therefore discharged home on Colace 100 mg twice daily, Xala root eye drops 0.005% daily 1 drop in each eye, isosorbide mononitrate 30 daily, Claritin 10 daily, Fl orastor 250 daily, trazodone 50 mg nightly, aspirin 81 daily. She will be followed by [facility] and will be seen by myself in follow up.
== END 2017-06-03 11:30 | disposition home health service (06) | DRG 560 ==
LOC: NAV ACUTE 17:45
PROVIDERS: ADMIT Internal Medicine; ATTEND Internal Medicine
DX: S32.592D Other specified fracture of left pubis, subsequent encounter for fracture with routine healing (principal); N39.0 Urinary tract infection, site not specified; B37.0 Candidal stomatitis; I48.0 Paroxysmal atrial fibrillation; J44.9 Chronic obstructive pulmonary disease, unspecified; I20.9 Angina pectoris, unspecified; I73.9 Peripheral vascular disease, unspecified; S32.10XD Unspecified fracture of sacrum, subsequent encounter for fracture with routine healing; W19.XXXD Unspecified fall, subsequent encounter; M81.0 Age-related osteoporosis without current pathological fracture; B96.20 Unspecified Escherichia coli [E. coli] as the cause of diseases classified elsewhere; G47.00 Insomnia, unspecified; J30.9 Allergic rhinitis, unspecified
CPT/HCPCS: 36415; 80048; 82553; 84484; 85025; G8978-GP-CM; G8979-GP-CJ; J2920; Q0162

== ENCOUNTER 2017-06-06 09:43 | Inpatient (IN) | payer MEDICARE ==
[2017-06-06] MEDS ORDERED: Bacitracin Zinc 1 Packet ONE (10:05)
--- NOTE | 2017-06-06 11:05 | CT ---
CT ABDOMEN AND PELVIS NONCONTRAST: Date: 06/06/17 HISTORY: Flank pain. Recent pelvic injury. COMPARISON: CT pelvis dated 05/13/17. FINDINGS: Calcified granulomata, hyperinflation, and parenchymal scarring are apparent at the lung bases. Each renal collecting system, ureter, and the urinary bladder are decompressed. A 0.5 cm oval calculus is present at the superior pole collecting system of the left kidney. No other stones are visible. Lack of contrast limits evaluation for other abnormalities. Calcified granulomata within the spleen a re consistent with healed granulomatous disease. There is calcification throughout the arterial struc tures. Hyperdense material layers in the dependent portion of the gallbladder lumen. Prominent degene rative changes lumbar spine. Diverticula arise from the colon. Radiopaque vascular bypass graft supra pubic pelvis anteriorly. Healing fractures of the left pubic rami, right acetabulum, and right side o f the sacrum. IMPRESSION: 1. Small, nonobstructing left renal calculus, 5.0 mm. 2. Atherosclerosis. 3. Diverticulosis. 4. Healing pelvic fractures. POS: POLA
[2017-06-06] MEDS ORDERED: Acetaminophen 325 MG TAB PO PRN (13:16)
[2017-06-06] MEDS ORDERED: Ondansetron ODT 4 MG TAB PO PRN ×2 (13:16→16:46)
[2017-06-06] MEDS ORDERED: HYDROcodone/Acetaminophen 5/325 mg Tablet PO PRN ×3 (13:17→16:43)
[2017-06-06] MEDS ORDERED: Bisacodyl 10 MG SUPP PR PRN ×2 (16:43→16:46)
[2017-06-06] MEDS ORDERED: Loratadine 10 MG TAB PO PRN (16:46)
[2017-06-06] MEDS ORDERED: Baclofen 10 MG TAB PO PRN (16:46)
[2017-06-06] MEDS ORDERED: Docusate 100 MG CAP PO SCH (21:00)
[2017-06-06] MEDS: Latanoprost 0.005% Ophth Soln 2.5 ml Bottle EA EYE SCH (21:06)
[2017-06-06] MEDS: Polyethylene Glycol 3350 17 GM Packet PO SCH (21:06)
[2017-06-06] MEDS: ALPRAZolam 0.25 MG TAB PO PRN (21:09)
[2017-06-06] MEDS: Docusate 100 MG CAP PO SCH (21:09)
[2017-06-07 04:44] VITALS: BMI 17.7
[2017-06-07 05:15] LABS: #Basophils 0.1 thou/uL (0.0-0.2); #Eosinphils 0.2 thou/uL (0.0-0.7); #Lymphocytes 2.3 thou/uL (1.20-3.40); #Monocytes 1.2 thou/uL (0.11-0.59); #Neutrophils 4.8 thou/uL (1.40-6.50); %Basophils 1.2 % (0.0-1.0); %Eosinophils 2.7 % (0.0-10.0); %Lymphocytes 26.8 % (21.0-51.0); %Monocytes 13.6 % (0.0-10.0); %Neutrophils 55.7 % (42.0-75.0); Mean Corpuscular HGB CONC 32.5 g/dL (32.0-36.0); Mean Corpuscular Hemoglobin 29.8 pg (27.0-31.0); Mean Corpuscular Volume 91.5 fl (81.0-99.0); Mean Platelet Volume 6.5 fL (7.4-10.4); Platelet Count 393 thou/uL (130-400); RBC Distribution Width 13.8 % (11.5-14.5); Red Blood Cell (RBC) Count 3.02 mill/uL (4.20-5.40); White Blood Cell (WBC) Count 8.6 thou/uL (4.8-10.8)
[2017-06-07 05:34] LABS: ALT (SGPT) 15 U/L (8-55); AST (SGOT) 17 U/L (5-34); Albumin 3.2 g/dL (3.4-4.8); Alkaline Phosphatase 112 U/L (40-150); Anion Gap 11 mmol/L (10-20); BUN (Urea Nitrogen) 14 mg/dL (9.8-20.1); Bilirubin, Total 0.2 mg/dL (0.2-1.2); Calc. Creatinine Clearance 48 mL/min (70-130); Calcium 8.8 mg/dL (7.8-10.44); Carbon Dioxide 28 mmol/L (23-31); Chloride 100 mmol/L (98-107); Estimated GFR-MDRD 88; Globulin 2.5 g/dL (2.4-3.5); Glucose 88 mg/dL (83-110); Potassium 3.9 mmol/L (3.5-5.1); Protein, Total 5.7 g/dL (6.0-8.3); Sodium 135 mmol/L (136-145)
[2017-06-07] MEDS ORDERED: traMADol HCl 50 MG TAB PO PRN (08:49)
[2017-06-07] MEDS ORDERED: Temazepam 15 MG CAP PO PRN (08:51)
[2017-06-07] MEDS: Famotidine 20 MG TAB PO SCH (09:19)
[2017-06-07] MEDS: Multivitamin W/ Minerals 1 TAB PO SCH (09:19)
[2017-06-07] MEDS: Docusate 100 MG CAP PO SCH ×2 (09:20→20:01)
[2017-06-07] MEDS: Citalopram 10 MG TAB PO SCH (09:20)
[2017-06-07] MEDS: Amiodarone 200 MG TAB PO SCH (09:20)
--- NOTE | 2017-06-07 13:46 | HP ---
HISTORY OF PRESENT ILLNESS: The patient is an unfortunate 82-year-old white female recently dischar gealexandre from the hospital where she was found to have a nondisplaced left pubic ramus fracture and right sacral and posterior acetabular fracture with severe pain which was improved with PT, OT, pain relief and was ambulating with a walker prior to discharge when apparently she awakened yesterday morning a fter sleeping on her stomach with severe pain which could not be controlled, so she presented to the emergency room and was found to have a pelvic CT scan showing healing fractures with no acute abnorma lities, but was in severe distress and unable to maintain her ADLs and to control her pain and theref ore was admitted back to the hospital again for pain relief and physical therapy. PAST MEDICAL HISTORY: Remarkable for history of atrial fibrillation which has been controlled with a miodarone. In fact, converted to sinus rhythm and is on no anticoagulation. She also has a history of an episode of chest pain not evaluated, but felt to possibly be due to angina and treated medicall y with isosorbide with no recurrence. She also has a history of severe peripheral vascular disease, status post left iliofemoral bypass with resolution of claudication, left leg. She also has a histor y of urinary tract infections recently resolved, history of severe osteoporosis. She also has a hist ory of significant anxiety and depression. She also has a past history of macular degeneration with legal blindness. MEDICATIONS: She has been compliant to her medication at home with amiodarone 400 daily, aspirin 81 daily, alprazolam 0.25 q.6h., citalopram 10 daily, but apparently was not taking temazepam at night f or sleep and had not been sleeping well. She also was on the isosorbide 30 mg mononitrate daily. ALLERGIES: She has a history of IODINE allergies. SOCIAL HISTORY: She has a distant history of severe smoking greater than [id number] history of smo sahil and of persistent alcohol use, drinking 2-3 drinks daily. She is a , lives alone. REVIEW OF SYSTEMS: HEENT: She denies any headaches, change in vision or hearing, with markedly decreased vision. She h as no hoarseness, sore throat. PULMONARY: She denies cough, sputum production, shortness of breath, chest pain. CARDIOVASCULAR: She denies palpitations, orthopnea, paroxysmal nocturnal dyspnea or edema. GASTROINTESTINAL: She denies nausea, vomiting, diarrhea. She has had some constipation with pain me dication. GENITOURINARY: She has had a history of recurrent urinary tract infections, but none recently. No d ysuria or hematuria. MUSCULOSKELETAL: She has the above-mentioned history of severe lower back pain, pelvic pain and hip pain with the fractures. NEUROLOGIC: She denies localized numbness, weakness in arms or extremities. PHYSICAL EXAMINATION: GENERAL: The patient is a thin, cachectic white female, appears in no distress at rest, but on signi ficant stress with any movement. She is somewhat agitated and concerned about her persistent symptom s. VITAL SIGNS: Vital signs show her to have blood pressure of 113/57, O2 sats 93% on room air, respira tions 20, pulse 67, temperature 98.1. HEENT: Pupils are equal, round, and react to light and accommodation. Sclerae are anicteric. Conju nctivae pale. Oral mucous membranes well hydrated. NECK: Supple, there are no nodes or masses. JVP is not elevated. LUNGS: Clear. CARDIAC: Shows a regular rhythm. No gallops or murmurs. ABDOMEN: Soft, nontender with no masses or organomegaly. SKIN AND EXTREMITIES: Show tenderness to movement and palpation of both hips and legs. NEUROLOGICAL: Intact. LABORATORY: Shows white count 8600, hematocrit 27, hemoglobin 9, sodium is 135, potassium 3.9, chlor juan jose 100, bicarbonate 28, BUN 14, creatinine 0.65, glucose 88, protein 5.7, albumin 3.2. CT scan done in the emergency room showed healing left pubic ramus fracture, sacral fracture, acetabu lar fracture with vascular calcification and some constipation, but no other significant abnormalitie s. ASSESSMENT: Persistent recurrent pain secondary to pelvic fractures. We will admit to the hospital for pain relief, recurrent PT and OT. We will restart back on her anxiety, depression and sleeping m edications. We will also continue on her amiodarone and her Imdur for her controlled atrial fibrilla tion, converted to sinus rhythm and for episode of chest pain, possible coronary disease. We will discuss future care with the patient and daughter.
[2017-06-07] MEDS: HYDROcodone/Acetaminophen 5/325 mg Tablet PO PRN ×2 (14:34→20:01)
[2017-06-07] MEDS: traZODone HCl 50 MG TAB PO SCH (20:01)
[2017-06-07] MEDS: Polyethylene Glycol 3350 17 GM Packet PO SCH (20:01)
[2017-06-07] MEDS: Latanoprost 0.005% Ophth Soln 2.5 ml Bottle EA EYE SCH (20:01)
--- NOTE | 2017-06-08 07:33 | PRG ---
DATE OF SERVICE: 06/08/2017 DATE OF ADMISSION: 06/06/2017 ACUTE CARE NOTE STAY HISTORY OF PRESENT ILLNESS: Ms. Acuña is a pleasant 82-year-old white female that had a nondisplaced l eft pubic ramus fracture and right sacrum posterior acetabular fracture. She was discharged from [facility] several days ago, much improved with physical therapy and occupational therapy and pain re lief. She is walking with a walker prior to discharge. Patient apparently awakened yesterday after sleeping on her stomach with severe pain which could not be controlled. She presented to the emergency room and was found to have a pelvic CT showing healing fracture, but no acute changes. Unfortunately, she was having severe pain and is unable to maintain her ADLs and so therefore she was admitted to control her pain back to the hospital for physical the rapy. SUBJECTIVE: The patient states she is still having pain, but is slightly better. She did get up and walked to the bathroom during the night which she did not want to do, but she did very well. I did encourage her to continue to get up and go to the bathroom, so we can keep her mobile. Eventually, s he will have to be discharged back home. Otherwise, the patient has no significant complaints. PHYSICAL EXAMINATION: VITAL SIGNS: Reveal blood pressure 108/51, pulse 63-68, respirations 18-20, O2 sat 93% on room air, T-max 99.1. GENERAL: This is a well-developed, well-nourished, very thin white female in no apparent distress at this time. HEENT: Reveals normocephalic, nontraumatic cranium. The pupils are equally round and reactive. Ext raocular movements are intact. Nose and throat are slightly dry, but clear. NECK: Supple, without mass, nodes or bruits. CHEST: Clear to auscultation. No rales, rhonchi or wheezes are heard. HEART: Reveals a regular rate and rhythm. No murmurs, gallops or rubs are noted. ABDOMEN: Soft and nontender, without organomegaly. Normal bowel sounds are noted in all 4 quadrants . GENITOURINARY: Exam is deferred. EXTREMITIES: Reveal tenderness mainly on that left side, but is painful for movement. NEUROLOGIC: She is intact. LABORATORY DATA: From yesterday revealed white count is 8,600, hemoglobin 9.0, hematocrit 27.7, plat elet count 393,000. Sodium is 135, potassium 3.9, chloride 100, carbon dioxide 28 with a BUN of 14, creatinine 0.65. Her albumin is 3.2, low and her total serum protein is 5.70. ASSESSMENT: 1. Pelvic fractures with recurrent pain. 2. Atrial fibrillation, converted. 3. Coronary artery disease. 4. Severe peripheral vascular disease. 5. Recurrent urinary tract infections. 6. Severe osteoporosis. 7. Macular degeneration with legal blindness. 8. Severe anxiety and depression. 9. Recurrent pain. PLAN: 1. Continue present medications. 2. Continue to assist the patient in getting up and moving to the bathroom. 3. Assist the patient in moving to the wheelchair or to chair and not just lay in bed.
[2017-06-08] MEDS: Amiodarone 200 MG TAB PO SCH (08:45)
[2017-06-08] MEDS: Docusate 100 MG CAP PO SCH ×2 (08:45→19:58)
[2017-06-08] MEDS: Citalopram 10 MG TAB PO SCH (08:45)
[2017-06-08] MEDS: Multivitamin W/ Minerals 1 TAB PO SCH (08:46)
[2017-06-08] MEDS: Famotidine 20 MG TAB PO SCH (08:46)
[2017-06-08] MEDS: HYDROcodone/Acetaminophen 5/325 mg Tablet PO PRN ×2 (14:40→19:58)
[2017-06-08] MEDS: Polyethylene Glycol 3350 17 GM Packet PO SCH (19:55)
[2017-06-08] MEDS: ALPRAZolam 0.25 MG TAB PO PRN (19:58)
[2017-06-08] MEDS: Latanoprost 0.005% Ophth Soln 2.5 ml Bottle EA EYE SCH (19:58)
[2017-06-08] MEDS: traZODone HCl 50 MG TAB PO SCH (19:58)
--- NOTE | 2017-06-09 07:47 | PRG ---
DATE OF SERVICE: 06/09/2017 DATE OF ADMISSION: 06/06/2017 Ms. Acuña is a very pleasant 82-year-old white female that had a nondisplaced pubic ramus fracture on t he left and the right sacral posterior acetabular fracture. She was admitted to this hospital and rangel d physical therapy and actually did very well and was discharged home. Unfortunately, she somehow la id on her stomach, which aggravated her pain and she showed up at the emergency room with significant acute exacerbation of pain, unable to be maintained with pain medication at home. She is also unabl e to maintain her ADLs, so she was admitted for pain control and therapy. The patient states she feels much better this morning and she still has pain, but is much improved. She slept well last night. She has no complaints today. PHYSICAL EXAMINATION: VITAL SIGNS: This morning reveal blood pressure 109/56, pulse 65-66, respirations 20, O2 sat 94-95% on room air, T-max 99.4. GENERAL: This is a well-developed, well-nourished, very thin white female in no apparent distress at this time. HEENT: Reveals normocephalic, nontraumatic cranium. Pupils are equally round and reactive to light. Extraocular movements intact. Nose and throat are moist this morning. NECK: Supple, without mass, nodes, bruits. LUNGS: Chest is clear to auscultation. No rales, no rhonchi, no wheezes or cough is heard. CARDIOVASCULAR: Reveals a regular rate and rhythm without murmurs, gallops, or rubs. ABDOMEN: Soft, nontender, without organomegaly. Normal bowel sounds are noted. EXAM: Deferred. EXTREMITIES: Reveal left-sided tenderness, mainly with movement, but now it is much improved. NEUROLOGICAL: She is intact. ASSESSMENT: 1. Pelvic fractures with recurrent pain. 2. Atrial fibrillation converted to normal sinus. 3. Coronary artery disease. 4. Severe osteoporosis. 5. Severe peripheral vascular disease. 6. Recurrent urinary tract infections. 7. Macular degeneration with legal blindness. 8. Severe anxiety and depression. 9. Recurrent pain. PLAN: 1. Continue present medications. 2. Continue physical therapy and occupational therapy. 3. Continue to encourage the patient to get up and move around as much as possible. 4. Encouraged the patient to be either in a chair or wheelchair as much as possible when she is able to.
[2017-06-09] MEDS: Amiodarone 200 MG TAB PO SCH (08:40)
[2017-06-09] MEDS: Docusate 100 MG CAP PO SCH ×2 (08:40→19:50)
[2017-06-09] MEDS: Multivitamin W/ Minerals 1 TAB PO SCH (08:40)
[2017-06-09] MEDS: Citalopram 10 MG TAB PO SCH (08:40)
[2017-06-09] MEDS: Famotidine 20 MG TAB PO SCH (08:40)
[2017-06-09] MEDS: HYDROcodone/Acetaminophen 5/325 mg Tablet PO PRN ×2 (08:41→19:50)
[2017-06-09] MEDS: traZODone HCl 50 MG TAB PO SCH (19:50)
[2017-06-09] MEDS: Polyethylene Glycol 3350 17 GM Packet PO SCH (19:50)
[2017-06-09] MEDS: ALPRAZolam 0.25 MG TAB PO PRN (19:50)
[2017-06-09] MEDS: Latanoprost 0.005% Ophth Soln 2.5 ml Bottle EA EYE SCH (19:52)
[2017-06-10] MEDS: HYDROcodone/Acetaminophen 5/325 mg Tablet PO PRN ×3 (08:56→21:06)
[2017-06-10] MEDS: Amiodarone 200 MG TAB PO SCH (08:57)
[2017-06-10] MEDS: Multivitamin W/ Minerals 1 TAB PO SCH (08:57)
[2017-06-10] MEDS: Famotidine 20 MG TAB PO SCH (08:57)
[2017-06-10] MEDS: Docusate 100 MG CAP PO SCH ×2 (08:57→20:16)
[2017-06-10] MEDS: Citalopram 10 MG TAB PO SCH (08:58)
[2017-06-10] MEDS: ALPRAZolam 0.25 MG TAB PO PRN (20:16)
[2017-06-10] MEDS: Latanoprost 0.005% Ophth Soln 2.5 ml Bottle EA EYE SCH (20:16)
[2017-06-10] MEDS: Polyethylene Glycol 3350 17 GM Packet PO SCH (20:16)
[2017-06-10] MEDS: traZODone HCl 50 MG TAB PO SCH (20:16)
--- NOTE | 2017-06-10 21:44 | PRG ---
DATE OF SERVICE: 06/10/2017 SUBJECTIVE: The patient feels well with main complaints of difficulty with the diet, but state that her pain is getting better. She did have some nausea secondary to diet, but no shortness of breath, chest pain, fever or chills. OBJECTIVE: VITAL SIGNS: Shows her blood pressure is 107/56, temperature is 97, pulse 72, respirations 22, O2 sa ts 92% on room air. LUNGS: Clear. CARDIAC: Shows regular rhythm. No gallops or murmurs. ABDOMEN: Soft and nontender. ASSESSMENT AND PLAN: 1. Resolving pelvic fractures, left pubic ramus, right sacrum. 2. Stable atrial fibrillation converted to normal sinus rhythm, on amiodarone. 3. Severe deconditioning, improving.
[2017-06-11 07:15] VITALS: BP 126/58; TEMP 98
[2017-06-11] MEDS ORDERED: Simethicone Chewable 80 MG TAB PO PRN (07:56)
[2017-06-11] MEDS: Citalopram 10 MG TAB PO SCH (08:15)
[2017-06-11] MEDS: Famotidine 20 MG TAB PO SCH (08:15)
[2017-06-11] MEDS: Amiodarone 200 MG TAB PO SCH (08:15)
[2017-06-11] MEDS: Docusate 100 MG CAP PO SCH (08:15)
[2017-06-11] MEDS: Multivitamin W/ Minerals 1 TAB PO SCH (08:15)
[2017-06-11] MEDS: HYDROcodone/Acetaminophen 5/325 mg Tablet PO PRN (08:16)
--- NOTE | 2017-06-13 10:20 | DIS ---
DATE OF ADMISSION: 06/06/2017 DATE OF DISCHARGE: 06/11/2017 FINAL DIAGNOSES: 1. Pelvic fracture, left superior and inferior pubic ramus and right sacral fracture. 2. Urinary tract infection. 3. Paroxysmal atrial fibrillation, controlled, and converted with amiodarone. 4. Glaucoma. 5. New onset of angina, controlled with isosorbide. 6. Anxiety and insomnia. HOSPITAL COURSE: The patient is an 82-year-old, white female with a history of severe osteoporosis, paroxysmal atrial fibrillation, hypertension, COPD, who has fallen and suffered a fracture of her lef t inferior and superior pubic rami with inability to maintain ADLs, also found to have a right sacral fracture, which was weightbearing according to orthopedic surgeon, and therefore, was admitted to [facility] for [facility] therapy. There, she had significant pain initially, which was finally controlled w ith tramadol, and she had a new problem of chest pain, which was not associated with any change in EK G or vital signs, but resolved with nitroglycerin, therefore, was started on isosorbide, no further r ecurrence. Her atrial fibrillation was continued and controlled with amiodarone, no recurrence. She did develop a urinary tract infection, which resolved with antibiotics, but she was still unable to maintain her ADLs, is having significant amount of pain, and therefore, was discharged and transferre d to the skilled unit on 06/11/2017. At that time, she was on MiraLax 17 grams daily, aspirin 81 fidel ly, latanoprost 0.005% daily, Imdur ER 30 mg daily, Claritin 10 mg daily, alprazolam 0.25 four times daily as needed, amiodarone 400 daily, baclofen 10 mg as needed, Colace 100 mg twice daily, citalopra m 10 daily. She will be followed by myself at skilled unit, continued on pain relief and physical th erapy.
== END 2017-06-11 10:40 | disposition swing bed (61) | DRG 561 ==
LOC: NAV ERS 09:43 → NAV ACUTE 13:00
PROVIDERS: ADMIT Internal Medicine; ATTEND Internal Medicine
DX: S32.591D Other specified fracture of right pubis, subsequent encounter for fracture with routine healing (principal); I48.2 Chronic atrial fibrillation; I73.9 Peripheral vascular disease, unspecified; S32.10XD Unspecified fracture of sacrum, subsequent encounter for fracture with routine healing; S32.401D Unspecified fracture of right acetabulum, subsequent encounter for fracture with routine healing; X58.XXXD Exposure to other specified factors, subsequent encounter; Z79.01 Long term (current) use of anticoagulants; M81.0 Age-related osteoporosis without current pathological fracture; F41.9 Anxiety disorder, unspecified; F32.9 Major depressive disorder, single episode, unspecified; H35.30 Unspecified macular degeneration; H54.8 Legal blindness, as defined in USA; Z79.82 Long term (current) use of aspirin; Z91.041 Radiographic dye allergy status; F17.210 Nicotine dependence, cigarettes, uncomplicated; F10.10 Alcohol abuse, uncomplicated; K59.00 Constipation, unspecified; I25.10 Atherosclerotic heart disease of native coronary artery without angina pectoris; G89.11 Acute pain due to trauma; Z91.81 History of falling; Z86.73 Personal history of transient ischemic attack (TIA), and cerebral infarction without residual deficits; I25.2 Old myocardial infarction
CPT/HCPCS: 36415; 74176; 80053; 85025; Q0162

== ENCOUNTER 2017-06-11 11:22 | Inpatient (IN) | payer MEDICARE ==
[2017-06-11] MEDS ORDERED: Simethicone Chewable 80 MG TAB PO PRN (11:57)
[2017-06-11] MEDS ORDERED: Loratadine 10 MG TAB PO PRN (11:57)
[2017-06-11] MEDS ORDERED: Ondansetron ODT 4 MG TAB PO PRN (11:57)
[2017-06-11] MEDS ORDERED: traMADol HCl 50 MG TAB PO PRN (11:57)
[2017-06-11] MEDS ORDERED: Bisacodyl 10 MG SUPP PR PRN (11:57)
[2017-06-11] MEDS ORDERED: Baclofen 10 MG TAB PO PRN (11:57)
[2017-06-11] MEDS ORDERED: Temazepam 15 MG CAP PO PRN (12:06)
[2017-06-11] MEDS: HYDROcodone/Acetaminophen 5/325 mg Tablet PO PRN ×2 (15:13→20:40)
[2017-06-11] MEDS: Latanoprost 0.005% Ophth Soln 2.5 ml Bottle EA EYE SCH (20:39)
[2017-06-11] MEDS: traZODone HCl 50 MG TAB PO SCH (20:39)
[2017-06-11] MEDS: Docusate 100 MG CAP PO SCH (20:39)
[2017-06-11] MEDS: ALPRAZolam 0.25 MG TAB PO PRN (20:40)
--- NOTE | 2017-06-11 21:27 | PRG ---
DATE OF SERVICE: 06/11/2017 SUBJECTIVE: The patient lying in bed, states she is feeling better with decreasing back pain, but is complaining mainly of belching, nausea and difficulty with the diet. OBJECTIVE: VITAL SIGNS: Shows blood pressure is 104/52, O2 sats 92% on room air, pulse 66, afebrile. HEENT: Pupils are equal, round, and react to light and accommodation. LUNGS: Clear. CARDIAC: Shows regular rhythm. ABDOMEN: Soft and nontender. No distention. SKIN AND EXTREMITIES: Display no edema, clubbing, cyanosis. Tenderness in the left inguinal area. ASSESSMENT: 1. Slowly improving left pubic ramus fracture, stable. 2. Atrial fibrillation, converted to sinus rhythm. 3. Severe deconditioning, improving, but still unable to maintain ADLs. PLAN: 1. Discharge and transfer to the skilled unit for continued therapy, PT and OT is improving, but not to goal. 2. Continue pain relief as needed.
--- NOTE | 2017-06-12 07:15 | PRG ---
DATE OF SERVICE: 06/12/2017 SUBJECTIVE: The patient is lying in bed, resting well with only complaints of persistent gaseous dis tention, but apparently was not given a dose yesterday and will change orders to routine and will con tinue Zofran and start her on Protonix 40 mg daily. The patient states she is continuing to have sig nificant pain in her left leg, but is cooperating with therapy and is eating better. There has been no shortness of breath or palpitations. OBJECTIVE: VITAL SIGNS: Blood pressure 121/56, temperature 98.9, pulse 70, respirations 22, O2 sats 92 on room air. LUNGS: Lungs are clear. CARDIAC: Cardiac examination shows regular rhythm. ABDOMEN: Abdomen is soft and nontender. Only tenderness over the left inguinal area. ASSESSMENT: 1. Slowly improving left pubic ramus and right iliac fracture. 2. Atrial fibrillation converted to sinus rhythm on amiodarone, stable. 3. Persistent gaseous distention on simethicone p.r.n. and will change to routine as well as Protoni x 40 daily. 4. Severe deconditioning, improving with therapy.
[2017-06-12] MEDS: Amiodarone 200 MG TAB PO SCH (08:41)
[2017-06-12] MEDS: Docusate 100 MG CAP PO SCH ×2 (08:42→21:01)
[2017-06-12] MEDS: Citalopram 10 MG TAB PO SCH (08:42)
[2017-06-12] MEDS: Multivitamin W/ Minerals 1 TAB PO SCH (08:42)
[2017-06-12] MEDS: Simethicone Chewable 80 MG TAB PO SCH ×4 (08:42→21:01)
[2017-06-12] MEDS: HYDROcodone/Acetaminophen 5/325 mg Tablet PO PRN ×3 (08:43→21:01)
[2017-06-12] MEDS: ALPRAZolam 0.25 MG TAB PO PRN ×2 (13:39→21:01)
[2017-06-12] MEDS: traZODone HCl 50 MG TAB PO SCH (21:01)
[2017-06-12] MEDS: Latanoprost 0.005% Ophth Soln 2.5 ml Bottle EA EYE SCH (21:01)
[2017-06-13] MEDS: Amiodarone 200 MG TAB PO SCH (08:45)
[2017-06-13] MEDS: Docusate 100 MG CAP PO SCH ×2 (08:46→19:57)
[2017-06-13] MEDS: Citalopram 10 MG TAB PO SCH (08:46)
[2017-06-13] MEDS: Simethicone Chewable 80 MG TAB PO SCH ×4 (08:47→20:02)
[2017-06-13] MEDS: ALPRAZolam 0.25 MG TAB PO PRN ×2 (08:47→19:59)
[2017-06-13] MEDS: HYDROcodone/Acetaminophen 5/325 mg Tablet PO PRN ×2 (08:47→19:59)
[2017-06-13] MEDS: Multivitamin W/ Minerals 1 TAB PO SCH (08:47)
--- NOTE | 2017-06-13 13:23 | PRG ---
DATE OF SERVICE: 06/13/2017 SUBJECTIVE: Ms. Acuña is doing well. She states that she did better with therapy. Pain is under cont rol. Denies any other concerns or questions. No family at bedside. OBJECTIVE: VITAL SIGNS: She is afebrile, heart rate 66, respirations 22, oxygen saturation 94% on room air, blo od pressure 110/54. CARDIOVASCULAR SYSTEM: S1, S2 plus. RESPIRATORY SYSTEM: Normal vesicular breath sounds. ABDOMEN: Soft, nontender, bowel sounds heard in all quadrants. EXTREMITIES: Without cyanosis or clubbing. CENTRAL NERVOUS SYSTEM: Generalized weakness. IMPRESSION: 1. Pelvic fracture. 2. Paroxysmal atrial fibrillation. 3. Gastroesophageal reflux disease. 4. Deconditioning. PLAN: 1. Continue current medications. 2. Nutritional support. 3. DVT and stress ulcer prophylaxis. 4. Decubitus precautions. 5. Routine laboratory values. Discussed with patient in detail. All questions answered.
[2017-06-13] MEDS: traZODone HCl 50 MG TAB PO SCH (19:57)
[2017-06-13] MEDS: Latanoprost 0.005% Ophth Soln 2.5 ml Bottle EA EYE SCH (20:00)
[2017-06-13] MEDS: Polyethylene Glycol 3350 17 GM Packet PO PRN (20:00)
[2017-06-14] MEDS: Multivitamin W/ Minerals 1 TAB PO SCH (08:57)
[2017-06-14] MEDS: Citalopram 10 MG TAB PO SCH (08:58)
[2017-06-14] MEDS: Simethicone Chewable 80 MG TAB PO SCH ×4 (08:58→20:16)
[2017-06-14] MEDS: Docusate 100 MG CAP PO SCH ×2 (08:58→20:15)
[2017-06-14] MEDS: Amiodarone 200 MG TAB PO SCH (08:58)
--- NOTE | 2017-06-14 09:30 | PRG ---
DATE OF SERVICE: 06/14/2017 SUBJECTIVE: Ms. Acuña is doing well. Denies any complaints. Discussed with therapy and they stated t hat she should be ready to go home in the next day or two provided she can arrange for help at home. I discussed with the patient who states that she needs till Saturday to make all the arrangements. OBJECTIVE: VITAL SIGNS: She is afebrile, heart rate 70, respirations 22, oxygen saturation 92% on room air, blo od pressure 161/73. CARDIOVASCULAR SYSTEM: S1, S2 plus. RESPIRATORY SYSTEM: Normal vesicular breath sounds. ABDOMEN: Soft, nontender, bowel sounds heard in all quadrants. EXTREMITIES: Without cyanosis or clubbing. CENTRAL NERVOUS SYSTEM: Improving deconditioning. IMPRESSION: 1. Pelvic fracture. 2. Proximal atrial fibrillation, now in sinus rhythm. 3. Gastroesophageal reflux disease. 4. Deconditioning, much improved. PLAN: 1. Continue current medications. 2. Discharge planning. 3. DVT and stress ulcer prophylaxis. 4. Decubitus precautions. 5. Routine laboratory values. 6. Anticipate discharging her home on Saturday. She is going to call her daughter and also call her c aregivers and inform them of the discharge plan.
[2017-06-14 12:33] VITALS: BMI 17.7
[2017-06-14] MEDS: Polyethylene Glycol 3350 17 GM Packet PO PRN (20:14)
[2017-06-14] MEDS: HYDROcodone/Acetaminophen 5/325 mg Tablet PO PRN (20:15)
[2017-06-14] MEDS: Latanoprost 0.005% Ophth Soln 2.5 ml Bottle EA EYE SCH (20:15)
[2017-06-14] MEDS: ALPRAZolam 0.25 MG TAB PO PRN (20:15)
[2017-06-14] MEDS: traZODone HCl 50 MG TAB PO SCH (20:15)
[2017-06-15] MEDS: Citalopram 10 MG TAB PO SCH (08:51)
[2017-06-15] MEDS: Docusate 100 MG CAP PO SCH ×2 (08:51→20:21)
[2017-06-15] MEDS: Multivitamin W/ Minerals 1 TAB PO SCH (08:51)
[2017-06-15] MEDS: Amiodarone 200 MG TAB PO SCH (08:52)
[2017-06-15] MEDS: Simethicone Chewable 80 MG TAB PO SCH ×4 (08:53→20:22)
--- NOTE | 2017-06-15 15:16 | PRG ---
DATE OF SERVICE: 06/15/2017 SUBJECTIVE: Ms. Acuña is doing well. Denies any complaints. She has made arrangements to take care o f herself when she goes home. She has [facility]. Her daughter is coming in on Saturday. Plan is to discharge her on Saturday during lunchtime. OBJECTIVE: VITAL SIGNS: She is afebrile, heart rate is 66, respirations 18, oxygen saturation 92% on room air, blood pressure 127/60. CARDIOVASCULAR: S1, S2 plus. RESPIRATORY: Vesicular breath sounds. ABDOMEN: Soft, nontender, bowel sounds heard in all quadrants. EXTREMITIES: Without cyanosis or clubbing. Peripheral pulses are palpable. CENTRAL NERVOUS SYSTEM: Improving deconditioning. IMPRESSION: 1. Pelvic fracture. 2. Improved deconditioning. 3. Paroxysmal atrial fibrillation, now in sinus rhythm. 4. Gastroesophageal reflux disease. PLAN: 1. Continue current medications. 2. Discharged home on Saturday. 3. [facility] with home PT. 4. Continue therapy here. 5. DVT and stress ulcer prophylaxis. 6. Decubitus precautions.
[2017-06-15] MEDS: traZODone HCl 50 MG TAB PO SCH (20:21)
[2017-06-15] MEDS: Polyethylene Glycol 3350 17 GM Packet PO PRN (20:21)
[2017-06-15] MEDS: ALPRAZolam 0.25 MG TAB PO PRN (20:21)
[2017-06-15] MEDS: Latanoprost 0.005% Ophth Soln 2.5 ml Bottle EA EYE SCH (20:22)
[2017-06-16] MEDS: Amiodarone 200 MG TAB PO SCH (08:41)
[2017-06-16] MEDS: Multivitamin W/ Minerals 1 TAB PO SCH (08:42)
[2017-06-16] MEDS: Docusate 100 MG CAP PO SCH ×2 (08:42→20:04)
[2017-06-16] MEDS: Simethicone Chewable 80 MG TAB PO SCH ×4 (08:42→20:04)
[2017-06-16] MEDS: Citalopram 10 MG TAB PO SCH (08:42)
--- NOTE | 2017-06-16 15:51 | PRG ---
DATE OF SERVICE: 06/16/2017 SUBJECTIVE: Ms. Acuña is doing well. Denies any complaints, resting comfortably. She states she is e xcited about going home tomorrow. OBJECTIVE: VITAL SIGNS: She is afebrile, heart rate is 69, respirations 20, oxygen saturation 94%, blood pressu re 128/60. CARDIOVASCULAR SYSTEM: S1, S2 plus. RESPIRATORY SYSTEM: Normal vesicular breath sounds. ABDOMEN: Soft, nontender, bowel sounds heard in all quadrants. EXTREMITIES: Without cyanosis or clubbing. Peripheral pulses are palpable. CENTRAL NERVOUS SYSTEM: Improving deconditioning. IMPRESSION: 1. Status post pelvic fracture with improved deconditioning. 2. Paroxysmal atrial fibrillation, now in sinus rhythm. 3. Gastroesophageal reflux disease. 4. Improving muscle spasms. 5. Depression and anxiety. 6. Coronary artery disease without angina. 7. Allergic rhinitis. PLAN: 1. Continue current medications. 2. Nutritional support. 3. DVT and stress ulcer prophylaxis. 4. Decubitus precautions. 5. Routine laboratory values. 6. Anticipate discharge to home tomorrow with home health.
[2017-06-16] MEDS: Latanoprost 0.005% Ophth Soln 2.5 ml Bottle EA EYE SCH (20:04)
[2017-06-16] MEDS: Polyethylene Glycol 3350 17 GM Packet PO PRN (20:04)
[2017-06-16] MEDS: traZODone HCl 50 MG TAB PO SCH (20:04)
[2017-06-16] MEDS: ALPRAZolam 0.25 MG TAB PO PRN (20:04)
[2017-06-16] MEDS: HYDROcodone/Acetaminophen 5/325 mg Tablet PO PRN (20:07)
[2017-06-17] MEDS: Amiodarone 200 MG TAB PO SCH (09:27)
[2017-06-17] MEDS: Simethicone Chewable 80 MG TAB PO SCH ×2 (09:28→12:17)
[2017-06-17] MEDS: Citalopram 10 MG TAB PO SCH (09:28)
[2017-06-17] MEDS: Multivitamin W/ Minerals 1 TAB PO SCH (09:28)
[2017-06-17] MEDS: Docusate 100 MG CAP PO SCH (09:28)
[2017-06-17 09:56] VITALS: BP 125/59; TEMP 97.8
--- NOTE | 2017-06-17 13:45 | DIS ---
DATE OF ADMISSION: 06/11/2017 DATE OF DISCHARGE: 06/17/2017 PRINCIPAL DIAGNOSES: Pelvis fracture and significant deconditioning and admitted for therapy. SECONDARY DIAGNOSES: 1. Paroxysmal atrial fibrillation, now in sinus rhythm. 2. Gastroesophageal reflux disease. 3. Improving muscle spasms. 4. Depression and anxiety. 5. Coronary artery disease. 6. Allergic rhinitis. COMPLICATIONS: None. ADVERSE REACTIONS: None. PROCEDURES: None. CONSULTATIONS: Physical therapy and occupational therapy. HOSPITAL COURSE: The patient was admitted by Dr. Teddy Shay on 06/11 to swing bed for continued t herapy for her pelvic fracture and deconditioning. She has done well. Therapy has cleared for disch arge. Daughter is here to pick her up and she is going to spend time with her mom for the next coupl e of weeks. The patient had [facility] and will resume them. She states that she has al l her medications at home and does not need any prescriptions. She is to follow up with Dr. Teddy pattno in a week's time. She is to call us with any questions or concerns. PHYSICAL EXAMINATION: On the day of discharge; VITAL SIGNS: She is afebrile, heart rate 65, respirations 18, oxygen saturation 94% on room air and blood pressure 125/59. CARDIOVASCULAR SYSTEM: S1 and S2 plus. RESPIRATORY SYSTEM: Normal vesicular breath sounds. ABDOMEN: Soft and nontender. Bowel sounds are heard in all quadrants. EXTREMITIES: Without cyanosis or clubbing. Peripheral pulses are palpable. CENTRAL NERVOUS SYSTEM: Grossly nonfocal. DISCHARGE MEDICATIONS: Same as admission, which are; 1. Xanax 0.25 mg q.i.d. p.r.n. 2. Amiodarone 400 mg daily. 3. Aspirin 81 mg daily. 4. Baclofen 10 mg t.i.d. p.r.n. 5. Colace 10 mg suppository p.r.n., which actually will be discontinued. 6. Citalopram 10 mg daily. 7. Colace 100 mg p.o. b.i.d. 8. Hydrocodone 1 tablet 5/325 q.4 hours p.r.n. pain. 9. Isosorbide 30 mg daily. 10. Eyedrops for her glaucoma. 11. Loratadine 10 mg daily as needed. 12. Multivitamin 1 tablet daily. 13. MiraLax 17 grams in 8 ounce of water daily. 14. Simethicone 80 mg p.o. before each meal and bedtime as needed. 15. Temazepam 30 mg p.o. at bedtime p.r.n. The temazepam will be discontinued too. 16. She is on trazodone 50 mg p.o. at bedtime. For full details, please see chart. DISCHARGE INSTRUCTIONS: Heart healthy diet. Limited activity. Home health to monitor her and will be managed by Dr. Shay. Total time spent on this discharge 35 minutes. Discussed with the patient and daughter in detail and all questions answered.
== END 2017-06-17 13:53 | disposition home health service (06) | DRG 561 ==
LOC: NAV ACUTE 11:22
PROVIDERS: ADMIT Internal Medicine; ATTEND Internal Medicine
DX: S32.9XXD Fracture of unspecified parts of lumbosacral spine and pelvis, subsequent encounter for fracture with routine healing (principal); I48.0 Paroxysmal atrial fibrillation; K21.9 Gastro-esophageal reflux disease without esophagitis; F32.9 Major depressive disorder, single episode, unspecified; F41.9 Anxiety disorder, unspecified; I25.10 Atherosclerotic heart disease of native coronary artery without angina pectoris; J30.9 Allergic rhinitis, unspecified; Z66 Do not resuscitate; M62.838 Other muscle spasm

== ENCOUNTER 2017-07-18 16:27 | Outpatient (CLI) | payer MEDICARE ==
[2017-07-18 16:56] LABS: ALT (SGPT) 25 U/L (8-55); AST (SGOT) 24 U/L (5-34); Albumin 3.9 g/dL (3.4-4.8); Alkaline Phosphatase 90 U/L (40-150); Anion Gap 14 mmol/L (10-20); BUN (Urea Nitrogen) 8 mg/dL (9.8-20.1); Bilirubin, Total 0.2 mg/dL (0.2-1.2); Calc. Creatinine Clearance 0 mL/min (70-130); Calcium 9.3 mg/dL (7.8-10.44); Carbon Dioxide 26 mmol/L (23-31); Chloride 96 mmol/L (98-107); Estimated GFR-MDRD 74; Globulin 2.4 g/dL (2.4-3.5); Glucose 129 mg/dL (83-110); Potassium 4.1 mmol/L (3.5-5.1); Protein, Total 6.3 g/dL (6.0-8.3); Sodium 132 mmol/L (136-145)
[2017-07-18 17:23] LABS: #Basophils 0.1 thou/uL (0.0-0.2); #Eosinphils 0.1 thou/uL (0.0-0.7); #Lymphocytes 1.9 thou/uL (1.20-3.40); #Monocytes 0.6 thou/uL (0.11-0.59); #Neutrophils 4.4 thou/uL (1.40-6.50); %Basophils 0.7 % (0.0-1.0); %Eosinophils 1.1 % (0.0-10.0); %Lymphocytes 27.4 % (21.0-51.0); %Monocytes 8.5 % (0.0-10.0); %Neutrophils 62.3 % (42.0-75.0); Hemoglobin 11.4 g/dL (12.0-16.0); Mean Corpuscular HGB CONC 32.2 g/dL (32.0-36.0); Mean Corpuscular Volume 93.3 fl (81.0-99.0); Mean Platelet Volume 5.7 fL (7.4-10.4); Platelet Count 425 thou/uL (130-400); RBC Distribution Width 12.8 % (11.5-14.5); Red Blood Cell (RBC) Count 3.81 mill/uL (4.20-5.40); White Blood Cell (WBC) Count 7.1 thou/uL (4.8-10.8)
== END 2017-07-18 16:28 | disposition home or self-care (01) ==
LOC: NAV LABSP 16:27
PROVIDERS: ATTEND Internal Medicine
DX: I48.0 Paroxysmal atrial fibrillation (principal); I73.9 Peripheral vascular disease, unspecified
CPT/HCPCS: 80053; 85025

== ENCOUNTER 2017-11-05 12:48 | Outpatient (CLI) | payer MEDICARE ==
[2017-11-05 14:24] LABS: Bilirubin Negative (Negative); Blood, Urine Small (Negative); Clarity Slightly Cloudy (Clear); Leukocyte Large (Negative); Specific Gravity, Urine 1.015 (1.005-1.030)
[2017-11-05 14:53] LABS: Bacteria/HPF 4+ HPF (None Seen); Glucose, Urine (Dipstick) Unable to Interpret mg/dL (Negative); Nitrite Unable to Interpret (Negative); Protein, Urine (Dipstick) Unable to Interpret mg/dL (Neg-Trace); RBC/HPF 0-3 HPF (0-3); Squamous Epithelial 0-3 HPF (0-3); Urobilinogen UNABLE TO INTERPRET mg/dL (0.2-1.0)
== END 2017-11-05 12:49 | disposition home or self-care (01) ==
LOC: NAV LABSP 12:48
PROVIDERS: ATTEND Internal Medicine
DX: N39.0 Urinary tract infection, site not specified (principal); G45.9 Transient cerebral ischemic attack, unspecified
CPT/HCPCS: 81003; 81015; 87077; 87086; 87186

== ENCOUNTER 2017-12-18 15:23 | Outpatient (CLI) | payer MEDICARE ==
--- NOTE | 2017-12-18 15:44 | RAD ---
LEFT WRIST TWO VIEWS: 12/18/17 HISTORY: Followup Colles fracture. FINDINGS: Comparison made with exam of 11/20/17. Progressive sclerosis. Satisfactory alignment of the distal rad ial fracture is seen since 11/20/17. The cast has been removed in the interim. IMPRESSION: Progressive but incomplete healing of the distal radial fracture since 11/20/17. POS: [facility]
== END 2017-12-18 15:24 | disposition home or self-care (01) ==
LOC: NAV RAD 15:23
PROVIDERS: ATTEND Internal Medicine
DX: S52.532D Colles' fracture of left radius, subsequent encounter for closed fracture with routine healing (principal); Z51.81 Encounter for therapeutic drug level monitoring; G45.9 Transient cerebral ischemic attack, unspecified; Z79.01 Long term (current) use of anticoagulants

== ENCOUNTER 2018-01-01 12:51 | Outpatient (CLI) | payer MEDICARE ==
--- NOTE | 2018-01-01 13:56 | RAD ---
LEFT WRIST TWO VIEWS: HISTORY: Followup distal radius fracture. COMPARISON: 12/18/2017 FINDINGS: Two views of the left wrist show transverse fractures through the metaphysis of the distal radius. T his is unchanged in alignment compared to the prior examination. No degenerative change is seen in t he radial carpal joint. IMPRESSION: Healing distal radius fracture. POS: [facility]
== END 2018-01-01 12:52 | disposition home or self-care (01) ==
LOC: NAV RAD 12:51
PROVIDERS: ATTEND Internal Medicine
DX: S52.502D Unspecified fracture of the lower end of left radius, subsequent encounter for closed fracture with routine healing (principal)

== ENCOUNTER 2018-01-08 13:42 | Outpatient (CLI) | payer MEDICARE ==
--- NOTE | 2018-01-08 14:08 | RAD ---
TWO VIEW LEFT WRIST: Indication: Colles fracture. Follow up. Comparison: 01-01-18 FINDINGS: There is re-demonstration of a mildly impacted distal left radial fracture with stable alignment. The re is associated osseous sclerosis. IMPRESSION: Stable appearing distal left radial fracture. There is sclerosis and callus formation although a comp onent of fracture lucency does persist. POS: [facility]
== END 2018-01-08 13:43 | disposition home or self-care (01) ==
LOC: NAV RAD 13:42
PROVIDERS: ATTEND Internal Medicine
DX: S52.532A Colles' fracture of left radius, initial encounter for closed fracture (principal); S52.502A Unspecified fracture of the lower end of left radius, initial encounter for closed fracture; M25.832 Other specified joint disorders, left wrist; L84 Corns and callosities

== ENCOUNTER 2019-02-25 10:55 | Outpatient (CLI) | payer MEDICARE ==
[2019-02-25 14:00] LABS: Alkaline Phosphatase 61 U/L (40-110); Anion Gap 15 mmol/L (10-20); BUN (Urea Nitrogen) 10 mg/dL (9.8-20.1); Bilirubin, Total 0.4 mg/dL (0.2-1.2); Calc. Creatinine Clearance 0 mL/min (70-130); Calcium 9.6 mg/dL (7.8-10.44); Carbon Dioxide 28 mmol/L (23-31); Chloride 97 mmol/L (98-107); Estimated GFR-MDRD 87; Globulin 2.6 g/dL (2.4-3.5); Glucose 93 mg/dL (83-110); Protein, Total 6.6 g/dL (5.8-8.1); Sodium 136 mmol/L (136-145)
[2019-02-25 14:01] LABS: ALT (SGPT) 15 U/L (8-55); AST (SGOT) 20 U/L (5-34); Hemoglobin 12.6 g/dL (12.0-16.0); Mean Corpuscular HGB CONC 32.6 g/dL (32.0-36.0); Mean Corpuscular Hemoglobin 31.1 pg (27.0-31.0); Mean Corpuscular Volume 95.4 fL (78.0-98.0); RBC Distribution Width 11.4 % (11.5-14.5); Red Blood Cell (RBC) Count 4.04 mill/uL (4.20-5.40); White Blood Cell (WBC) Count 7.2 thou/uL (4.8-10.8)
[2019-02-25 14:02] LABS: #Basophils 0.1 thou/uL (0.0-0.2); #Eosinphils 0.1 thou/uL (0.0-0.7); #Lymphocytes 2.6 thou/uL (1.20-3.40); #Neutrophils 3.4 thou/uL (1.40-6.50); %Basophils 0.8 % (0.0-1.0); %Eosinophils 1.3 % (0.0-10.0); %Lymphocytes 36.6 % (21.0-51.0); %Monocytes 14.3 % (0.0-10.0); Mean Platelet Volume 6.2 fL (7.4-10.4); Platelet Count 371 thou/uL (130-400)
== END 2019-02-25 10:56 | disposition home or self-care (01) ==
LOC: NAV ULT 10:55
PROVIDERS: ATTEND Internal Medicine
DX: I48.0 Paroxysmal atrial fibrillation (principal); R53.82 Chronic fatigue, unspecified; I08.3 Combined rheumatic disorders of mitral, aortic and tricuspid valves
CPT/HCPCS: 36415; 80053; 83880; 85025; 93306

== ENCOUNTER 2019-11-11 15:08 | Outpatient (CLI) | payer MEDICARE ==
--- NOTE | 2019-11-11 15:52 | CT ---
Exam: Lumbar spine CT without contrast HISTORY: Osteoporosis with compression fracture. Patient was reaching to the bathroom faucet and beg an having muscle spasm. Now pain similar to previous compression fracture. COMPARISON: 05/13/2017 FINDINGS: Chronic changes in the visualized lung parenchyma. Atherosclerosis of a nonaneurysmal aorta Symmetric attenuation of the paraspinal muscles and psoas muscles Visualized solid organs do not demonstrate any acute abnormality. Visualized alimentary canal is aravind sly patent Redemonstration of vertebroplasty change at T12 and L1. Stable loss of vertebral body height at T12 a nd L1. Vertebral body height is maintained from L2 through L5. No evidence of fracture. Stable leftward scoliosis of the lumbar spine. Redemonstration of vacuum disc phenomenon at L4-L5 and L5-S1 Visualized bony pelvis and sacrum are intact T12-L1: Broad-based disc bulge. No significant canal stenosis. Mild bilateral neural foraminal narrow ing L1-L2: Broad-based disc bulge. Mild central canal stenosis. Mild bilateral neural foraminal narrowing L2-L3: Broad-based disc bulge, ligament flavum thickening and facet hypertrophy with resultant mild c entral canal stenosis. Mild to moderate right neural foraminal narrowing. Patent left foramen L3-L4: Broad-based disc bulge, ligament flavum thickening and facet hypertrophy. Moderate central can al stenosis. Moderate right and mild left neural foraminal narrowing L4-L5: Vacuum disc phenomenon. Broad-based disc bulge, ligament flavum thickening and facet hypertrop hy. Moderate central canal stenosis. Severe right and moderate left neural foraminal narrowing. L5-S1: Vacuum disc phenomenon. Broad-based disc bulge, ligament flavum thickening and facet. Moderate central canal stenosis. Moderate right and moderate to severe left neural foraminal narrowing. Redemonstration of a left L5 pars defect. No significant associated spondylolisthesis IMPRESSION: 1. Stable osteoporotic compression fracture at T12 and L1 with previous vertebroplasty. 2. No new compression fractures in the lumbar spine. 3. Varying degrees of central canal stenosis and neural foraminal narrowing as detailed above. Transcribed Date/Time: 11/11/2019 4:26 PM
--- NOTE | 2019-11-11 16:07 | CT ---
CT OF THE PELVIS WITHOUT CONTRAST: 11/11/19 INDICATION: History of right hip pain and osteoporosis. COMPARISON: Prior CT of the abdomen and pelvis dated 06/06/17. FINDINGS: There are healed deformities involving the obturator rings bilaterally. There is diffuse osteopenia. No definite acute fracture is evident. The proximal femurs appear intact bilaterally. There is a fem- fem bypass graft in place. There is severe vascular calcifications. The visualized intrapelvic conten ts reveal no definite acute abnormality. There is advanced disc degenerative and facet osteoarthritic change of the lower lumbar spine. IMPRESSION: No definite acute displaced fracture demonstrated. POS: [facility]
== END 2019-11-11 15:09 | disposition home or self-care (01) ==
LOC: NAV CT 15:08
PROVIDERS: ATTEND Internal Medicine
DX: M80.88XG Other osteoporosis with current pathological fracture, vertebra(e), subsequent encounter for fracture with delayed healing (principal); S32.10XD Unspecified fracture of sacrum, subsequent encounter for fracture with routine healing; M48.061 Spinal stenosis, lumbar region without neurogenic claudication; M48.07 Spinal stenosis, lumbosacral region; Z98.890 Other specified postprocedural states
CPT/HCPCS: 72131; 72192

== ENCOUNTER 2020-06-03 10:20 | Outpatient (CLI) | payer MEDICARE | END 2020-06-03 10:21 | disposition home or self-care (01) | LOC: NAV CT 10:20 | PROVIDERS: ATTEND Anesthesiology Pain Medicine | DX: S32.050A Wedge compression fracture of fifth lumbar vertebra, initial encounter for closed fracture (principal); M47.816 Spondylosis without myelopathy or radiculopathy, lumbar region; M41.9 Scoliosis, unspecified | CPT/HCPCS: 72131 ==

== ENCOUNTER 2020-06-09 12:21 | Outpatient (CLI) | payer MEDICARE ==
[2020-06-09 13:23] LABS: ALT (SGPT) 10 U/L (8-55); AST (SGOT) 13 U/L (5-34); Albumin 4.2 g/dL (3.4-4.8); Alkaline Phosphatase 85 U/L (40-110); Anion Gap 15 mmol/L (10-20); BUN (Urea Nitrogen) 21 mg/dL (9.8-20.1); Bilirubin, Total 0.2 mg/dL (0.2-1.2); Calc. Creatinine Clearance 0 mL/min (70-130); Calcium 9.6 mg/dL (7.8-10.44); Carbon Dioxide 27 mmol/L (23-31); Chloride 95 mmol/L (98-107); Glucose 89 mg/dL (83-110); Potassium 4.4 mmol/L (3.5-5.1); Protein, Total 7.2 g/dL (5.8-8.1); Sodium 133 mmol/L (136-145)
[2020-06-09 13:28] LABS: #Basophils 0.1 thou/uL (0.0-0.2); #Eosinphils 0.3 thou/uL (0.0-0.7); #Lymphocytes 2.2 thou/uL (1.20-3.40); #Monocytes 0.7 thou/uL (0.11-0.59); #Neutrophils 3.5 thou/uL (1.40-6.50); %Basophils 0.9 % (0.0-1.0); %Eosinophils 4.7 % (0.0-10.0); %Lymphocytes 31.9 % (21.0-51.0); %Monocytes 10.4 % (0.0-10.0); Hemoglobin 11.8 g/dL (12.0-16.0); Mean Corpuscular HGB CONC 32.6 g/dL (32.0-36.0); Mean Corpuscular Hemoglobin 31.1 pg (27.0-31.0); Mean Corpuscular Volume 95.5 fL (78.0-98.0); Mean Platelet Volume 4.9 fL (7.4-10.4); Platelet Count 405 thou/uL (130-400); RBC Distribution Width 12.8 % (11.5-14.5); Red Blood Cell (RBC) Count 3.79 mill/uL (4.20-5.40); White Blood Cell (WBC) Count 6.8 thou/uL (4.8-10.8)
[2020-06-09 18:13] LABS: Bilirubin Negative (Negative); Blood, Urine Negative (Negative); Clarity Clear (Clear); Glucose, Urine (Dipstick) Negative (Negative); Ketone, Urine Negative (Negative); Leukocyte Negative (Negative); Nitrite Negative (Negative); Protein, Urine (Dipstick) Negative (Neg-Trace); Specific Gravity, Urine 1.015 (1.005-1.030); Urobilinogen 0.2 mg/dL (Less than 2)
== END 2020-06-09 12:22 | disposition home or self-care (01) ==
LOC: NAVSJIPCSP 12:21
PROVIDERS: ATTEND Internal Medicine
DX: I73.9 Peripheral vascular disease, unspecified (principal)
CPT/HCPCS: 36415; 80053; 81003; 85025

== ENCOUNTER 2020-06-28 09:40 | Emergency (ER) | payer MEDICARE ==
[2020-06-28] MEDS ORDERED: Aspirin Chewable 81 MG TAB ONE (10:11)
[2020-06-28] MEDS ORDERED: Nitroglycerin 2% Ointment 1 INCH/1 GM Packet ONE (10:11)
[2020-06-28] MEDS ORDERED: methylPREDNISolone Sod Succ 40 MG VIAL ONE (10:11)
[2020-06-28 10:40] LABS: #Basophils 0.1 thou/uL (0.0-0.2); #Eosinphils 0.9 thou/uL (0.0-0.7); #Lymphocytes 2.9 thou/uL (1.20-3.40); #Neutrophils 5.4 thou/uL (1.40-6.50); %Eosinophils 8.6 % (0.0-10.0); %Lymphocytes 27.7 % (21.0-51.0); %Monocytes 9.9 % (0.0-10.0); %Neutrophils 52.8 % (42.0-75.0); Hemoglobin 13.2 g/dL (12.0-16.0); Mean Corpuscular Hemoglobin 31.1 pg (27.0-31.0); Mean Corpuscular Volume 97.3 fL (78.0-98.0); Mean Platelet Volume 5.5 fL (7.4-10.4); Platelet Count 457 thou/uL (130-400); Red Blood Cell (RBC) Count 4.23 mill/uL (4.20-5.40); White Blood Cell (WBC) Count 10.3 thou/uL (4.8-10.8)
[2020-06-28 10:54] LABS: ALT (SGPT) 11 U/L (8-55); AST (SGOT) 15 U/L (5-34); Albumin 4.5 g/dL (3.4-4.8); Alkaline Phosphatase 84 U/L (40-110); Anion Gap 16 mmol/L (10-20); BUN (Urea Nitrogen) 9 mg/dL (9.8-20.1); Bilirubin, Total 0.4 mg/dL (0.2-1.2); Calc. Creatinine Clearance 0 mL/min (70-130); Calcium 9.7 mg/dL (7.8-10.44); Carbon Dioxide 27 mmol/L (23-31); Chloride 98 mmol/L (98-107); Globulin 3.2 g/dL (2.4-3.5); Glucose 104 mg/dL (83-110); Potassium 4.1 mmol/L (3.5-5.1); Protein, Total 7.7 g/dL (5.8-8.1); Sodium 137 mmol/L (136-145)
== END 2020-06-28 13:06 | disposition short-term general hospital (02) ==
LOC: NAV ERS 09:40
DX: R06.00 Dyspnea, unspecified (principal); R79.1 Abnormal coagulation profile; T49.0X5A Adverse effect of local antifungal, anti-infective and anti-inflammatory drugs, initial encounter; I25.2 Old myocardial infarction; Z86.73 Personal history of transient ischemic attack (TIA), and cerebral infarction without residual deficits; Z87.891 Personal history of nicotine dependence; Z79.899 Other long term (current) drug therapy; Z79.82 Long term (current) use of aspirin
CPT/HCPCS: 71045; 80053; 83880; 84484; 85025; 85379; 93005; 94640; 94760; 96374; J2920; J7620

== ENCOUNTER 2021-04-29 11:48 | Emergency (ER) | payer MEDICARE ==
[2021-04-29 12:33] LABS: #Basophils 0.1 thou/uL (0.0-0.2); #Eosinphils 0.1 thou/uL (0.0-0.7); #Lymphocytes 1.1 thou/uL (1.20-3.40); #Monocytes 0.7 thou/uL (0.11-0.59); #Neutrophils 5.3 thou/uL (1.40-6.50); %Basophils 0.8 % (0.0-1.0); %Eosinophils 1.8 % (0.0-10.0); %Lymphocytes 14.3 % (21.0-51.0); %Monocytes 10.1 % (0.0-10.0); %Neutrophils 72.9 % (42.0-75.0); Mean Corpuscular HGB CONC 32.4 g/dL (32.0-36.0); Mean Corpuscular Hemoglobin 30.8 pg (27.0-31.0); Mean Corpuscular Volume 95.1 fL (78.0-98.0); Mean Platelet Volume 5.6 fL (7.4-10.4); Platelet Count 342 thou/uL (130-400); RBC Distribution Width 12.6 % (11.5-14.5); Red Blood Cell (RBC) Count 4.23 mill/uL (4.20-5.40); White Blood Cell (WBC) Count 7.3 thou/uL (4.8-10.8)
[2021-04-29 12:54] LABS: ALT (SGPT) 17 U/L (8-55); AST (SGOT) 21 U/L (5-34); Albumin 3.9 g/dL (3.4-4.8); Alkaline Phosphatase 55 U/L (40-110); Anion Gap 14 mmol/L (10-20); BUN (Urea Nitrogen) 12 mg/dL (9.8-20.1); Bilirubin, Total 0.4 mg/dL (0.2-1.2); CK (CPK) 49 U/L (29-168); Calc. Creatinine Clearance 0 mL/min (70-130); Calcium 8.8 mg/dL (7.8-10.44); Carbon Dioxide 27 mmol/L (23-31); Chloride 93 mmol/L (98-107); Globulin 3.1 g/dL (2.4-3.5); Glucose 96 mg/dL (83-110); Sodium 130 mmol/L (136-145)
[2021-04-29 12:58] LABS: Lipase 21 U/L (8-78)
[2021-04-29 13:33] LABS: Bilirubin Negative (Negative); Blood, Urine Negative (Negative); Clarity Clear (Clear); Glucose, Urine (Dipstick) Negative (Negative); Ketone, Urine Negative (Negative); Leukocyte Negative (Negative); Nitrite Negative (Negative); Protein, Urine (Dipstick) Negative (Neg-Trace); Specific Gravity, Urine 1.025 (1.005-1.030); Urobilinogen 0.2 mg/dL (Less than 2)
[2021-04-29 13:47] LABS: Amphetamine Not Detected (NotDetected); Barbiturates Screen Not Detected (NotDetected); Benzodiazepine Screen Detected (NotDetected); Cocaine Metabolite Screen Not Detected (NotDetected); Medtox Control Line Valid? VALID (VALID); Methadone Not Detected (NotDetected); Methamphetamine Not Detected (NotDetected); Opiate Screen Not Detected (NotDetected); Oxycodone Screen Not Detected (NotDetected); Phencyclidine (PCP) Not Detected (NotDetected); THC/Cannabinoid Screen Not Detected (NotDetected); Tricyclic Screen Not Detected (NotDetected)
[2021-04-29 15:21] LABS: SARS-CoV-2 NAA Rapid Test Not Detected (NotDetected)
[2021-04-30] MEDS ORDERED: Acetaminophen 325 MG TAB PO PRN (08:26)
== END 2021-04-29 16:57 | disposition critical access hospital (66) ==
LOC: NAV ERS 11:48
DX: R07.81 Pleurodynia (principal); R53.1 Weakness; H54.8 Legal blindness, as defined in USA; I25.2 Old myocardial infarction; W18.09XA Striking against other object with subsequent fall, initial encounter; Y93.01 Activity, walking, marching and hiking; Z20.822 Contact with and (suspected) exposure to COVID-19; Z86.73 Personal history of transient ischemic attack (TIA), and cerebral infarction without residual deficits; Z86.718 Personal history of other venous thrombosis and embolism; Z87.891 Personal history of nicotine dependence; Z79.82 Long term (current) use of aspirin; Z79.899 Other long term (current) drug therapy
CPT/HCPCS: 36415; 70450; 80053; 80306; 80307; 81003; 82140; 82550; 83690; 84443; 84484; 85025; 93005; U0002

== ENCOUNTER 2021-04-29 14:48 | Inpatient (IN) | payer MEDICARE ==
[2021-04-29] MEDS ORDERED: guaiFENesin ER 600 MG TAB PO SCH ×2 (17:15→18:30)
[2021-04-29] MEDS ORDERED: Loratadine 10 MG TAB PO SCH ×2 (17:15→18:30)
[2021-04-29] MEDS ORDERED: Polyethylene Glycol 3350 17 GM Packet PO PRN (21:07)
[2021-04-29] MEDS ORDERED: Loratadine 10 MG TAB PO PRN (21:07)
[2021-04-29] MEDS ORDERED: Simethicone Chewable 80 MG TAB PO PRN (21:09)
[2021-04-29] MEDS ORDERED: Acetaminophen 325 MG TAB PO PRN (22:57)
[2021-04-29] MEDS: Latanoprost 0.005% Ophth Soln 2.5 ml Bottle EA EYE SCH (23:10)
[2021-04-29] MEDS: Docusate 100 MG CAP PO SCH (23:10)
[2021-04-30] MEDS: Levothyroxine Sodium 50 MCG TAB PO SCH (05:43)
[2021-04-30] MEDS: Albuterol 200 PUFF (6.7GM INHALER) INH PRN ×2 (05:47→18:20)
[2021-04-30] MEDS ORDERED: predniSONE 20 MG TAB PO SCH (08:00)
[2021-04-30] MEDS ORDERED: Acetaminophen 325 MG TAB PO PRN (08:55)
[2021-04-30] MEDS: Aspirin Chewable 81 MG TAB PO SCH (09:21)
[2021-04-30] MEDS: Cholecalciferol 1,000 UNITS (25 MCG) TAB PO SCH (09:25)
[2021-04-30] MEDS: Amiodarone 200 MG TAB PO SCH (09:26)
[2021-04-30] MEDS: Docusate 100 MG CAP PO SCH ×2 (09:27→20:40)
[2021-04-30] MEDS ORDERED: Bisacodyl 10 MG SUPP PR PRN (12:32)
[2021-04-30] MEDS ORDERED: Bisacodyl 5 MG TAB PO PRN (12:32)
[2021-04-30] MEDS ORDERED: Senokot S 8.6-50 MG TAB PO PRN (12:32)
[2021-04-30] MEDS ORDERED: Calcium Carbonate 500 MG ChewTAB PO PRN (12:32)
[2021-04-30] MEDS ORDERED: Loperamide HCl 2 MG CAP PO PRN ×2 (12:32)
[2021-04-30] MEDS ORDERED: Promethazine HCl 25 MG SUPP PR PRN (12:32)
[2021-04-30] MEDS ORDERED: Guaifenesin DM 100-10/5 ML UDCUP PO PRN (12:32)
[2021-04-30] MEDS ORDERED: Ondansetron PF 4 MG/2 ML Vial IVP PRN (12:32)
[2021-04-30] MEDS: Ondansetron ODT 4 MG TAB SL PRN (18:18)
[2021-04-30] MEDS: Acetaminophen 325 MG TAB PO PRN (18:22)
[2021-04-30] MEDS: Cepastat Lozenges 1 LOZ PO PRN ×2 (18:23→20:39)
[2021-04-30] MEDS: Latanoprost 0.005% Ophth Soln 2.5 ml Bottle EA EYE SCH (20:39)
[2021-05-01] MEDS: Levothyroxine Sodium 50 MCG TAB PO SCH (05:43)
[2021-05-01 06:49] LABS: ALT (SGPT) 13 U/L (8-55); AST (SGOT) 18 U/L (5-34); Alkaline Phosphatase 52 U/L (40-110); Anion Gap 14 mmol/L (10-20); BUN (Urea Nitrogen) 8 mg/dL (9.8-20.1); Bilirubin, Total 0.4 mg/dL (0.2-1.2); Calc. Creatinine Clearance 43 mL/min (70-130); Carbon Dioxide 28 mmol/L (23-31); Chloride 92 mmol/L (98-107); Globulin 3.1 g/dL (2.4-3.5); Glucose 111 mg/dL (83-110); Potassium 3.7 mmol/L (3.5-5.1); Protein, Total 7.1 g/dL (5.8-8.1); Sodium 130 mmol/L (136-145)
[2021-05-01 06:55] LABS: #Lymphocytes 1.2 thou/uL (1.20-3.40); #Monocytes 1.4 thou/uL (0.11-0.59); #Neutrophils 7.9 thou/uL (1.40-6.50); %Basophils 0.4 % (0.0-1.0); %Eosinophils 0.1 % (0.0-10.0); %Lymphocytes 10.9 % (21.0-51.0); %Monocytes 13.4 % (0.0-10.0); %Neutrophils 75.3 % (42.0-75.0); Hemoglobin 12.6 g/dL (12.0-16.0); Mean Corpuscular HGB CONC 32.7 g/dL (32.0-36.0); Mean Corpuscular Hemoglobin 30.7 pg (27.0-31.0); Mean Corpuscular Volume 93.8 fL (78.0-98.0); Mean Platelet Volume 5.5 fL (7.4-10.4); Platelet Count 362 thou/uL (130-400); RBC Distribution Width 12.4 % (11.5-14.5); White Blood Cell (WBC) Count 10.5 thou/uL (4.8-10.8)
[2021-05-01] MEDS: Ondansetron ODT 4 MG TAB SL PRN (07:38)
[2021-05-01] MEDS: Cepastat Lozenges 1 LOZ PO PRN (07:38)
[2021-05-01] MEDS: Aspirin Chewable 81 MG TAB PO SCH (09:36)
[2021-05-01] MEDS: Acetaminophen 325 MG TAB PO PRN ×2 (09:37→15:18)
[2021-05-01] MEDS: Amiodarone 200 MG TAB PO SCH (09:37)
[2021-05-01] MEDS: Docusate 100 MG CAP PO SCH ×2 (09:40→21:23)
[2021-05-01] MEDS: Cholecalciferol 1,000 UNITS (25 MCG) TAB PO SCH (09:40)
[2021-05-01] MEDS: Latanoprost 0.005% Ophth Soln 2.5 ml Bottle EA EYE SCH (21:22)
[2021-05-01] MEDS: ALPRAZolam 0.5 MG TAB PO PRN (21:28)
[2021-05-02] MEDS: Levothyroxine Sodium 50 MCG TAB PO SCH (06:20)
[2021-05-02] MEDS: Aspirin Chewable 81 MG TAB PO SCH (08:17)
[2021-05-02] MEDS: Amiodarone 200 MG TAB PO SCH (08:18)
[2021-05-02] MEDS: Docusate 100 MG CAP PO SCH ×2 (08:19→22:32)
[2021-05-02] MEDS: Cholecalciferol 1,000 UNITS (25 MCG) TAB PO SCH (08:20)
[2021-05-02] MEDS ORDERED: Bisacodyl 10 MG SUPP PR PRN (13:07)
[2021-05-02] MEDS ORDERED: Bisacodyl 5 MG TAB PO PRN (13:07)
[2021-05-02] MEDS ORDERED: Senokot S 8.6-50 MG TAB PO PRN (13:15)
[2021-05-02] MEDS: Acetaminophen 325 MG TAB PO PRN (19:51)
[2021-05-02] MEDS: ALPRAZolam 0.5 MG TAB PO PRN (19:51)
[2021-05-02] MEDS: Latanoprost 0.005% Ophth Soln 2.5 ml Bottle EA EYE SCH (19:51)
[2021-05-03] MEDS: Acetaminophen 325 MG TAB PO PRN (04:50)
[2021-05-03] MEDS: Cepastat Lozenges 1 LOZ PO PRN ×2 (06:31→21:50)
[2021-05-03] MEDS: Levothyroxine Sodium 50 MCG TAB PO SCH (06:46)
[2021-05-03] MEDS: Aspirin Chewable 81 MG TAB PO SCH (09:10)
[2021-05-03] MEDS: Cholecalciferol 1,000 UNITS (25 MCG) TAB PO SCH (09:11)
[2021-05-03] MEDS: Docusate 100 MG CAP PO SCH ×2 (09:11→20:37)
[2021-05-03] MEDS: Amiodarone 200 MG TAB PO SCH (09:12)
[2021-05-03] MEDS: traMADol HCl 50 MG TAB PO PRN ×2 (09:12→21:50)
[2021-05-03] MEDS: Ondansetron ODT 4 MG TAB SL PRN (16:25)
[2021-05-03] MEDS: ALPRAZolam 0.5 MG TAB PO PRN (20:34)
[2021-05-03] MEDS: Latanoprost 0.005% Ophth Soln 2.5 ml Bottle EA EYE SCH (20:34)
[2021-05-04] MEDS: Levothyroxine Sodium 50 MCG TAB PO SCH (05:29)
[2021-05-04] MEDS: Cepastat Lozenges 1 LOZ PO PRN (06:21)
[2021-05-04] MEDS: Aspirin Chewable 81 MG TAB PO SCH (08:26)
[2021-05-04] MEDS: traMADol HCl 50 MG TAB PO PRN ×2 (08:26→20:43)
[2021-05-04] MEDS: Docusate 100 MG CAP PO SCH ×2 (08:27→20:44)
[2021-05-04] MEDS: Cholecalciferol 1,000 UNITS (25 MCG) TAB PO SCH (08:27)
[2021-05-04] MEDS: Amiodarone 200 MG TAB PO SCH (08:27)
[2021-05-04] MEDS: Latanoprost 0.005% Ophth Soln 2.5 ml Bottle EA EYE SCH (20:43)
[2021-05-04] MEDS: ALPRAZolam 0.5 MG TAB PO PRN (20:43)
[2021-05-05] MEDS: Levothyroxine Sodium 50 MCG TAB PO SCH (05:49)
[2021-05-05] MEDS: Amiodarone 200 MG TAB PO SCH (08:54)
[2021-05-05] MEDS: Aspirin Chewable 81 MG TAB PO SCH (08:54)
[2021-05-05] MEDS: traMADol HCl 50 MG TAB PO PRN ×2 (08:55→20:38)
[2021-05-05] MEDS: Cholecalciferol 1,000 UNITS (25 MCG) TAB PO SCH (08:55)
[2021-05-05] MEDS: Docusate 100 MG CAP PO SCH ×2 (08:56→20:38)
[2021-05-05] MEDS: ALPRAZolam 0.5 MG TAB PO PRN (20:38)
[2021-05-05] MEDS: Latanoprost 0.005% Ophth Soln 2.5 ml Bottle EA EYE SCH (20:43)
[2021-05-05] MEDS: traZODone HCl 50 MG TAB PO PRN (23:04)
[2021-05-05] MEDS: Cepastat Lozenges 1 LOZ PO PRN (23:05)
[2021-05-06] MEDS: Levothyroxine Sodium 50 MCG TAB PO SCH (05:55)
[2021-05-06] MEDS: ALPRAZolam 0.5 MG TAB PO PRN ×2 (09:29→20:36)
[2021-05-06] MEDS: Aspirin Chewable 81 MG TAB PO SCH (09:29)
[2021-05-06] MEDS: Amiodarone 200 MG TAB PO SCH (09:30)
[2021-05-06] MEDS: Cholecalciferol 1,000 UNITS (25 MCG) TAB PO SCH (09:31)
[2021-05-06] MEDS: Docusate 100 MG CAP PO SCH ×2 (09:31→20:36)
[2021-05-06] MEDS: Cepastat Lozenges 1 LOZ PO PRN (09:40)
[2021-05-06] MEDS: Latanoprost 0.005% Ophth Soln 2.5 ml Bottle EA EYE SCH (20:36)
[2021-05-06] MEDS: traMADol HCl 50 MG TAB PO PRN (20:36)
[2021-05-06] MEDS: traZODone HCl 50 MG TAB PO PRN (20:36)
[2021-05-07] MEDS: Levothyroxine Sodium 50 MCG TAB PO SCH (06:38)
[2021-05-07] MEDS: Docusate 100 MG CAP PO SCH ×2 (09:13→21:06)
[2021-05-07] MEDS: Aspirin Chewable 81 MG TAB PO SCH (09:13)
[2021-05-07] MEDS: Cholecalciferol 1,000 UNITS (25 MCG) TAB PO SCH (09:13)
[2021-05-07] MEDS: Amiodarone 200 MG TAB PO SCH (09:14)
[2021-05-07 19:08] LABS: SARS-CoV-2 PCR by NAA Not Detected (NotDetected)
[2021-05-07] MEDS: Latanoprost 0.005% Ophth Soln 2.5 ml Bottle EA EYE SCH (21:05)
[2021-05-07] MEDS: ALPRAZolam 0.5 MG TAB PO PRN (21:06)
[2021-05-07] MEDS: traZODone HCl 50 MG TAB PO PRN (21:06)
[2021-05-07] MEDS: traMADol HCl 50 MG TAB PO PRN (21:06)
[2021-05-07] MEDS: Cepastat Lozenges 1 LOZ PO PRN (21:11)
[2021-05-08 03:15] VITALS: BMI 18.9
[2021-05-08] MEDS: Levothyroxine Sodium 50 MCG TAB PO SCH (06:04)
[2021-05-08] MEDS: Ondansetron ODT 4 MG TAB SL PRN (08:25)
[2021-05-08] MEDS: Docusate 100 MG CAP PO SCH ×2 (09:12→21:13)
[2021-05-08] MEDS: Amiodarone 200 MG TAB PO SCH (09:13)
[2021-05-08] MEDS: Cholecalciferol 1,000 UNITS (25 MCG) TAB PO SCH (09:14)
[2021-05-08] MEDS: Aspirin Chewable 81 MG TAB PO SCH (09:14)
[2021-05-08] MEDS: Sodium Chloride 0.9% 1,000 ML IV SCH (15:49)
[2021-05-08] MEDS: Latanoprost 0.005% Ophth Soln 2.5 ml Bottle EA EYE SCH (21:11)
[2021-05-08] MEDS: traMADol HCl 50 MG TAB PO PRN (21:11)
[2021-05-08] MEDS: traZODone HCl 50 MG TAB PO PRN (21:11)
[2021-05-08] MEDS: ALPRAZolam 0.5 MG TAB PO PRN (21:11)
[2021-05-08] MEDS: Cepastat Lozenges 1 LOZ PO PRN (21:15)
[2021-05-09] MEDS: Sodium Chloride 0.9% 1,000 ML IV SCH ×2 (00:55→11:10)
[2021-05-09] MEDS: Levothyroxine Sodium 50 MCG TAB PO SCH (06:06)
[2021-05-09] MEDS: Aspirin Chewable 81 MG TAB PO SCH (09:44)
[2021-05-09] MEDS: Cholecalciferol 1,000 UNITS (25 MCG) TAB PO SCH (09:44)
[2021-05-09] MEDS: Docusate 100 MG CAP PO SCH ×2 (09:44→21:04)
[2021-05-09] MEDS: Amiodarone 200 MG TAB PO SCH (09:44)
[2021-05-09] MEDS: traMADol HCl 50 MG TAB PO PRN ×2 (09:50→21:01)
[2021-05-09] MEDS: traZODone HCl 50 MG TAB PO PRN (21:01)
[2021-05-09] MEDS: Latanoprost 0.005% Ophth Soln 2.5 ml Bottle EA EYE SCH (21:07)
[2021-05-09] MEDS: Cepastat Lozenges 1 LOZ PO PRN (21:07)
[2021-05-09] MEDS: ALPRAZolam 0.5 MG TAB PO PRN (21:48)
[2021-05-10] MEDS: Levothyroxine Sodium 50 MCG TAB PO SCH (06:32)
[2021-05-10] MEDS: HYDROcodone/Acetaminophen 5/325 mg Tablet PO PRN ×2 (09:00→18:04)
[2021-05-10] MEDS: Aspirin Chewable 81 MG TAB PO SCH (09:00)
[2021-05-10] MEDS: Docusate 100 MG CAP PO SCH ×2 (09:00→22:21)
[2021-05-10] MEDS: Cholecalciferol 1,000 UNITS (25 MCG) TAB PO SCH (09:02)
[2021-05-10] MEDS: Amiodarone 200 MG TAB PO SCH (09:02)
[2021-05-10] MEDS: traMADol HCl 50 MG TAB PO PRN (14:31)
[2021-05-10] MEDS: traZODone HCl 50 MG TAB PO PRN (18:09)
[2021-05-10] MEDS: ALPRAZolam 0.5 MG TAB PO PRN (18:09)
[2021-05-10] MEDS: Cepastat Lozenges 1 LOZ PO PRN (19:44)
[2021-05-10] MEDS: Latanoprost 0.005% Ophth Soln 2.5 ml Bottle EA EYE SCH (22:21)
[2021-05-11] MEDS: Levothyroxine Sodium 50 MCG TAB PO SCH (05:02)
[2021-05-11] MEDS: Aspirin Chewable 81 MG TAB PO SCH (09:20)
[2021-05-11] MEDS: Docusate 100 MG CAP PO SCH ×2 (09:21→20:20)
[2021-05-11] MEDS: Amiodarone 200 MG TAB PO SCH (09:21)
[2021-05-11] MEDS: Cholecalciferol 1,000 UNITS (25 MCG) TAB PO SCH (09:23)
[2021-05-11 19:48] VITALS: TEMP 97.9
[2021-05-11] MEDS: Latanoprost 0.005% Ophth Soln 2.5 ml Bottle EA EYE SCH (20:21)
[2021-05-11] MEDS: ALPRAZolam 0.5 MG TAB PO PRN (20:28)
[2021-05-11] MEDS: Cepastat Lozenges 1 LOZ PO PRN (21:46)
[2021-05-11] MEDS: traMADol HCl 50 MG TAB PO PRN (21:47)
[2021-05-12] MEDS: Levothyroxine Sodium 50 MCG TAB PO SCH (05:32)
[2021-05-12] MEDS: Cepastat Lozenges 1 LOZ PO PRN (09:00)
[2021-05-12] MEDS: ALPRAZolam 0.5 MG TAB PO PRN (09:00)
[2021-05-12] MEDS: Aspirin Chewable 81 MG TAB PO SCH (09:00)
[2021-05-12] MEDS: Docusate 100 MG CAP PO SCH (09:01)
[2021-05-12] MEDS: Amiodarone 200 MG TAB PO SCH (09:01)
[2021-05-12] MEDS: Cholecalciferol 1,000 UNITS (25 MCG) TAB PO SCH (09:03)
[2021-05-12 14:22] VITALS: BP 125/63
== END 2021-05-12 16:40 | DRG 948 ==
LOC: NAV ACUTE 16:44
PROVIDERS: ADMIT Family Medicine; ATTEND Family Medicine
DX: R53.1 Weakness (principal); I48.19 Other persistent atrial fibrillation; Z20.822 Contact with and (suspected) exposure to COVID-19; F41.9 Anxiety disorder, unspecified; E78.5 Hyperlipidemia, unspecified; I73.9 Peripheral vascular disease, unspecified; E03.9 Hypothyroidism, unspecified; J44.9 Chronic obstructive pulmonary disease, unspecified; F32.A Depression, unspecified; H40.9 Unspecified glaucoma; G47.00 Insomnia, unspecified; M54.14 Radiculopathy, thoracic region; R91.8 Other nonspecific abnormal finding of lung field; I95.9 Hypotension, unspecified; Z66 Do not resuscitate; Y92.009 Unspecified place in unspecified non-institutional (private) residence as the place of occurrence of the external cause; Z60.2 Problems related to living alone; W18.30XA Fall on same level, unspecified, initial encounter; Z91.041 Radiographic dye allergy status; Z86.73 Personal history of transient ischemic attack (TIA), and cerebral infarction without residual deficits; Z91.048 Other nonmedicinal substance allergy status; Z79.899 Other long term (current) drug therapy; Z79.51 Long term (current) use of inhaled steroids; Z79.82 Long term (current) use of aspirin; Z79.890 Hormone replacement therapy; Z87.891 Personal history of nicotine dependence; Z91.81 History of falling; I25.2 Old myocardial infarction
CPT/HCPCS: 71250; 80053; 85025; J7050; J7512; Q0162; U0003; U0005

== ENCOUNTER 2021-09-11 16:02 | Outpatient (CLI) | payer MEDICARE ==
[2021-09-11 16:15] LABS: Bilirubin Negative (Negative); Blood, Urine Negative (Negative); Glucose, Urine (Dipstick) Negative (Negative); Ketone, Urine Negative (Negative); Leukocyte Trace (Negative); Nitrite Negative (Negative); Protein, Urine (Dipstick) Negative (Neg-Trace); Specific Gravity, Urine 1.025 (1.005-1.030); Urobilinogen 0.2 mg/dL (Less than 2); pH, Urine 5.5 (5.0-9.0)
[2021-09-11 16:24] LABS: Clarity SL HAZY (Clear)
[2021-09-11 16:46] LABS: Mucous/LPF 1+ LPF (<2+); Squamous Epithelial 0-3 HPF (0-3)
== END 2021-09-11 16:03 | disposition home or self-care (01) ==
LOC: NAV LABSP 16:02
PROVIDERS: ATTEND Family Medicine
DX: N39.0 Urinary tract infection, site not specified (principal)
CPT/HCPCS: 81001; 87086

== ENCOUNTER 2021-10-03 16:13 | Outpatient (CLI) | payer MEDICARE ==
[2021-10-03 17:05] LABS: Bilirubin Negative (Negative); Blood, Urine Moderate (Negative); Clarity Cloudy (Clear); Glucose, Urine (Dipstick) Negative (Negative); Ketone, Urine Negative (Negative); Leukocyte Moderate (Negative); Nitrite Negative (Negative); Protein, Urine (Dipstick) Negative (Neg-Trace); Specific Gravity, Urine 1.015 (1.005-1.030); Urobilinogen 0.2 mg/dL (Less than 2)
[2021-10-03 17:08] LABS: Bacteria/HPF None Seen HPF (None Seen)
== END 2021-10-03 16:14 | disposition home or self-care (01) ==
LOC: NAV ERS 16:13 → NAV LABSP 16:14
PROVIDERS: ATTEND Internal Medicine
DX: N39.0 Urinary tract infection, site not specified (principal)
CPT/HCPCS: 81001

== ENCOUNTER 2022-07-07 02:53 | Emergency (ER) | payer OTHER, MEDICARE ==
[2022-07-07] MEDS ORDERED: Ibuprofen 200 MG TAB ONE (03:12)
[2022-07-07 06:34] LABS: #Basophils 0.1 thou/uL (0.0-0.2); #Eosinphils 0.1 thou/uL (0.0-0.7); #Lymphocytes 1.4 thou/uL (1.20-3.40); #Monocytes 0.8 thou/uL (0.11-0.59); #Neutrophils 9.2 thou/uL (1.40-6.50); %Basophils 0.8 % (0.0-1.0); %Eosinophils 0.5 % (0.0-10.0); %Lymphocytes 12.4 % (21.0-51.0); %Monocytes 6.9 % (0.0-10.0); %Neutrophils 79.3 % (42.0-75.0); Hemoglobin 12.2 g/dL (12.0-16.0); Mean Corpuscular Hemoglobin 31.3 pg (27.0-31.0); Mean Corpuscular Volume 94.8 fl (78.0-98.0); Mean Platelet Volume 4.9 fL (7.4-10.4); Platelet Count 373 10x3/uL (130-400); RBC Distribution Width 11.9 % (11.5-14.5); Red Blood Cell (RBC) Count 3.89 mill/uL (4.20-5.40); White Blood Cell (WBC) Count 11.6 10x3/uL (4.8-10.8)
[2022-07-07 06:42] LABS: Prothrombin Time 13.3 sec (12.0-14.7)
[2022-07-07] MEDS ORDERED: Fentanyl 100 MCG/2 ML VIAL SLOW IVP SCH (06:45)
[2022-07-07 06:48] LABS: Anion Gap 14 mmol/L (10-20); BUN (Urea Nitrogen) 8 mg/dL (9.8-20.1); Calc. Creatinine Clearance 0 mL/min (70-130); Calcium 9.1 mg/dL (7.8-10.44); Carbon Dioxide 27 mmol/L (23-31); Chloride 91 mmol/L (98-107); Estimated GFR 66; Glucose 97 mg/dL (83-110); Sodium 128 mmol/L (136-145)
[2022-07-07 06:51] LABS: PTT 22.5 sec (22.9-36.1)
[2022-07-07] MEDS ORDERED: Sodium Chloride 0.9% 500 ML ONE (07:23)
== END 2022-07-07 08:45 | disposition short-term general hospital (02) ==
LOC: NAV ERS 02:53
DX: S72.012A Unspecified intracapsular fracture of left femur, initial encounter for closed fracture (principal); E87.1 Hypo-osmolality and hyponatremia; D72.829 Elevated white blood cell count, unspecified; W01.0XXA Fall on same level from slipping, tripping and stumbling without subsequent striking against object, initial encounter; Z87.891 Personal history of nicotine dependence
CPT/HCPCS: 80048; 84484; 85025; 85610; 85730; 93005; 96374; J3010; J7030

== ENCOUNTER 2023-05-08 13:28 | Emergency (ER) | payer MEDICARE | END 2023-05-08 15:25 | LOC: NAV ERS 13:28 | DX: G89.29 Other chronic pain (principal); M25.552 Pain in left hip; I25.2 Old myocardial infarction; Z86.73 Personal history of transient ischemic attack (TIA), and cerebral infarction without residual deficits; Z86.718 Personal history of other venous thrombosis and embolism; Z87.891 Personal history of nicotine dependence; Z79.899 Other long term (current) drug therapy; Z79.82 Long term (current) use of aspirin | CPT/HCPCS: 72170 ==